=== PATIENT | female | born 1935 | race Caucasian/White ===

== ENCOUNTER 2017-07-10 07:52 | Inpatient (IN) | payer MEDICARE, MEDICAID ==
[2017-07-10] VITALS (8 sets, daily range): BP systolic 148–193; BP diastolic 69–90; PULSE 78–91; RESP 16–18; TEMP 98.2–98.5; O2SAT 95–96
[~2017-07-10] VITALS: Ht 168.9 cm; Wt 87.0 kg
[~2017-07-10 07:52] MED LIST: AMOX500C PO; ASPI1TAB57 PO; CHOL100025 CHEW; IBUP200C PO; LISI40TA PO; MELA1TAB18 PO; QUET1TAB7 PO; SERT-129 PO; VITA250T3 PO
--- NOTE | 2017-07-10 08:12 | PD ---
HPI Chief Complaint: Pain: Acute or Chronic Time Seen by Provider: 08:12 Travel History International Travel<30 days: No Contact w/Intl Traveler<30days: No Traveled to known affect area: No History of Present Illness HPI 81-year-old female with history of dementia was brought to the emergency room by her son and with history of a lot of psychiatric and behavioral issues going on over past 2-3 weeks. The son is the one was giving history. He says that his mother usually has been progressing in the dementia and he has been trying to arrange various medical and psych services for his mother because of her mental health status. The son says that for past couple weeks she has become very briggs and often goes into noncommunicative mode. Also for past few days she has been pooping and peeing everywhere in the house and the son and has to clean it. They are confused if this has anything to do with her behavioral issues or patient is incontinent. Patient was admitted at [facility] last week where as per the son extensive blood test, urine test and CAT scan of the head was done. All the test results came back to be within normal limit. She was discharged home at this point and asked to get outpatient services. Son says he has an appointment with a psychiatrist next week and this is a new psychiatrist. But in the meanwhile because of all the other issues going on he wanted to have a second opinion. She has also been complaining of right hip pain and lower back pain and he wanted that to be evaluated. Vital signs are stable. Patient has been quite cooperative here and does not appear to be in any significant distress. [facility] Past Medical History Narrative Medical List of her past medical, surgical, social and family history reviewed from the nursing note. High Cholesterol: Yes Diminished Hearing: No Hypertension: Yes Menopausal: Yes Tubal Ligation: Yes Past Surgical History Appendectomy: Yes Prostatectomy: Yes (RIGHT HIP REP) Other Surgery: Yes (RIGHT KNEE,TORN MENISCUS) Social History Alcohol Use: Yes (RARE) Tobacco Use: No Substance Use: No Allergies-Medications (Allergen,Severity, Reaction): Coded Allergies: No Known Allergies (Unverified Allergy, Unknown, 07/10/17) Comments No known drug allergies. Reported Meds & Prescriptions Reported Meds & Active Scripts Active Sertraline (Sertraline HCl) 100 Mg Tab 100 Mg PO BID Lorazepam 0.5 Mg Tab 0.5 Mg PO DAILY PRN Quetiapine (Quetiapine Fumarate) 25 Mg Tab 25 Mg PO BID Reported Melatonin 10 Mg Tab 10 Mg PO HS PRN Aspirin 81 (Aspirin) 81 Mg Tabdr 81 Mg PO DAILY Vitamin D3 (Cholecalciferol) 1,000 Unit Chew 5,000 Units CHEW DAILY Vitamin C (Ascorbic Acid) 250 Mg Tab 500 Mg PO DAILY Ibuprofen 200 Mg Cap 200 Mg PO Q4H PRN Lisinopril 40 Mg Tab 40 Mg PO DAILY Narrative Medication List of her home medications reviewed from the nursing note. Review of Systems Except as stated in HPI: all other systems reviewed are Neg Musculoskeletal: Positive: Pain Physical Exam Narrative GENERAL: Awake, alert, elderly, no obvious distress SKIN: Focused skin assessment warm/dry. HEAD: Atraumatic. Normocephalic. EYES: Pupils equal and round. No scleral icterus. No injection or drainage. ENT: No nasal bleeding or discharge. Mucous membranes pink and moist. NECK: Trachea midline. No JVD. CARDIOVASCULAR: Regular rate and rhythm. No murmur appreciated. RESPIRATORY: No accessory muscle use. Clear to auscultation. Breath sounds equal bilaterally. GASTROINTESTINAL: Abdomen soft, non-tender, nondistended. Hepatic and splenic margins not palpable. MUSCULOSKELETAL: No obvious deformities. No clubbing. No cyanosis. No edema. NEUROLOGICAL: Awake and alert, dementia. No obvious cranial nerve deficits. Motor grossly within normal limits. Normal speech. PSYCHIATRIC: Appropriate mood and affect; insight and judgment normal. Data Data Last Documented VS Vital Signs Date Time Temp Pulse Resp B/P (MAP) Pulse Ox O2 Delivery O2 Flow Rate FiO2 07/10/17 10:00 78 18 179/81 (113) 95 Room Air 07/10/17 07:[address] Lumb Spine W/O Contrast (07/10/17 ) Ct Pelvis W/O Iv Contrast (07/10/17 ) Urinalysis - C+S If Indicated (07/10/17 08:34) Urine Culture (07/10/17 09:31) Complete Blood Count With Diff (07/10/17 09:59) Basic Metabolic Panel (Bmp) (07/10/17 09:59) Ceftriaxone Inj (Rocephin Inj) (07/10/17 10:00) Blood Culture (07/10/17 09:59) Mri T Spine W/O Contrast (07/10/17 ) Mri C Spine W/O Contrast (07/10/17 ) Mri L Spine W/O Contrast (07/10/17 ) Admit Order (Ed Use Only) (07/10/17 10:51) Labs Laboratory Tests Test 07/10/17 09:31 07/10/17 10:14 Urine Color YELLOW Urine Turbidity HAZY Urine pH 5.5 Urine Specific [place] 1.016 Urine Protein TRACE mg/dL Urine Glucose (UA) NEG mg/dL Urine Ketones NEG mg/dL Urine Occult Blood MOD Urine Nitrite POS Urine Bilirubin NEG Urine Urobilinogen LESS THAN 2.0 MG/DL Urine Leukocyte Esterase LARGE Urine RBC 8 /hpf Urine WBC 125 /hpf Urine WBC Clumps MANY Urine Squamous Epithelial Cells 2 /hpf Urine Bacteria MANY /hpf Urine Hyaline Casts 10 /lpf Microscopic Urinalysis Comment CULTURE INDICATED White Blood Count 8.7 TH/MM3 Red Blood Count 4.52 MIL/MM3 Hemoglobin 13.4 GM/DL Hematocrit 39.4 % Mean Corpuscular Volume 87.1 FL Mean Corpuscular Hemoglobin 29.6 PG Mean Corpuscular Hemoglobin Concent 34.0 % Red Cell Distribution Width 13.4 % Platelet Count 162 TH/MM3 Mean Platelet Volume 7.5 FL Neutrophils (%) (Auto) 87.7 % Lymphocytes (%) (Auto) 4.8 % Monocytes (%) (Auto) 6.7 % Eosinophils (%) (Auto) 0.4 % Basophils (%) (Auto) 0.4 % Neutrophils # (Auto) 7.7 TH/MM3 Lymphocytes # (Auto) 0.4 TH/MM3 Monocytes # (Auto) 0.6 TH/MM3 Eosinophils # (Auto) 0.0 TH/MM3 Basophils # (Auto) 0.0 TH/MM3 CBC Comment DIFF FINAL Differential Comment Blood Urea Nitrogen 25 MG/DL Creatinine 2.00 MG/DL Random Glucose 120 MG/DL Calcium Level 9.5 MG/DL Sodium Level 138 MEQ/L Potassium Level 4.3 MEQ/L Chloride Level 105 MEQ/L Carbon Dioxide Level 25.4 MEQ/L Anion Gap 8 MEQ/L Estimat Glomerular Filtration Rate 24 ML/MIN MDM Medical Decision Making Medical Screen Exam Complete: Yes Emergency Medical Condition: Yes Medical Record Reviewed: Yes Differential Diagnosis Worsening dementia, dementia with psychosis, UTI, spinal stenosis, hip fracture Narrative Course 10:08 AM UA suggestive of UTI. CT scan of the hip is within normal limit. However CT scan of the lumbar spine shows radiologically significant spinal stenosis. I have ordered Rocephin. I have talked to the OR nurse with Dr. Medina who is on for neurosurgery. He is going to take a look at the CT and call me back. Once I have heard back from him I will call and talk to the son and let him know of the plan. If patient does have significant stenosis as per Dr. Medina I will admit her. He will have to consult on her at which point. 10:[address] Medina did look at the CT as per him the stenosis looks significantly bad. He wanted an MRI of the entire spine which has been ordered. At this point I would go ahead and admit the patient. Awaiting for the hospitalist to call back. I discussed this with her son at length as well. Procedures EKG Prior to Arrival: No Diagnosis Primary Impression: Spinal stenosis at L4-L5 level Additional Impressions: Dementia Qualified Codes: F03.91 - Unspecified dementia with behavioral disturbance UTI (urinary tract infection) Qualified Codes: N39.0 - Urinary tract infection, site not specified Admitting Information Admitting Physician Requests: Admit Scripts Sulfamethoxazole/Trimethoprim (Sulfamethoxazole-Tmp Ss Tablet) 400 Mg-80 Mg Tablet 1 TAB PO Q12H for 12 Days, #24 TAB Prov: Paola Bloom MD R2 07/13/17 Sertraline (Sertraline) 100 Mg Tab 100 MG PO BID, #135 TAB 0 Refills Prov: Ruchi Gold MD R1 07/10/17 Lorazepam (Lorazepam) 0.5 Mg Tab 0.5 MG PO DAILY Y for ANXIETY, #30 TAB 0 Refills Prov: Ruchi Gold MD R1 07/10/17 Edward Addison MD Jul 10, 2017 08:12
--- NOTE | 2017-07-10 09:39 | RADRPT ---
EXAM DATE/TIME: 07/10/2017 09:08 [facility] COMPARISON: No previous studies available for comparison. INDICATIONS : Right sided pelvic pain. ORAL CONTRAST: No oral contrast ingested. RADIATION DOSE: 24.86 CTDIvol (mGy) MEDICAL HISTORY : Hypertension. SURGICAL HISTORY : Appendectomy. right hip surgery ENCOUNTER: Initial ACUITY: 1 day PAIN SCALE: 7/10 LOCATION: Right pelvis TECHNIQUE: Volumetric scanning of the pelvis was performed. Using automated exposure control and adjustment of the mA and/or kV according to patient size, radiation dose was kept as low as reasonably achievable t o obtain optimal diagnostic quality images. DICOM format image data is available electronically for review and comparison. FINDINGS: BOWEL/MESENTERY: The visualized small and large bowel demonstrate no acute abnormality. There is no free fluid. BLADDER: There is distention of the urinary bladder. There is no wall thickening or mass. RETROPERITONEUM: There is no aneurysm or lymphadenopathy. REPRODUCTIVE: Within normal limits. INGUINAL: There is no lymphadenopathy or hernia. MUSCULOSKELETAL: Degenerative changes lumbar spine. Right hip prosthesis without hardware loosening or fracture. Heter otopic bone adjacent to the right hip. Mild to moderate degenerative changes of the left hip. No frac ture seen. Mild degenerative changes both SI joints.. CONCLUSION: 1. Right hip prosthesis. No fracture or hardware loosening. 2. Distended urinary bladder. 3. Degenerative changes of the lumbar spine and left hip. Christian Richardson MD on July 10, 2017 at 9:34 Board Certified Radiologist. This report was verified electronically.
[2017-07-10 09:53] LABS: BACTERIA, URINE MANY /hpf; BILIRUBIN, URINE NEG (NEG); BLOOD, URINE MOD (NEG); GLUCOSE,URINE NEG (NEG); HYALINE CAST, URINE 10 /lpf (RARE); KETONE, URINE NEG (NEG); NITRITE,URINE POS (NEG); PH, URINE 5.5 (5.0-8.5); SQUAMOUS EPITHELIAL CELL URINE 2 /hpf (0-5); URINE COLOR YELLOW (YELLW/STRAW); URINE LEUKOCYTE ESTERASE LARGE (NEG); WHITE BLOOD CELL CLUMPS MANY
--- NOTE | 2017-07-10 09:53 | RADRPT ---
EXAM DATE/TIME: 07/10/2017 09:08 [facility] COMPARISON: No previous studies available for comparison. INDICATIONS : Right hip pain RADIATION DOSE: 35.86 CTDIvol (mGy) MEDICAL HISTORY : Dementia. Hypertension. SURGICAL HISTORY : Appendectomy. ENCOUNTER: Initial ACUITY: 1 day PAIN SCALE: 7/10 LOCATION: Right hip TECHNIQUE: Volumetric scanning of the lumbar spine was performed. Multiplanar reconstructions in the sagittal, coronal and oblique axial planes were performed. Using automated exposure control and adjustment of the mA and/or kV according to patient size, radiation dose was kept as low as reasonably achievable t o obtain optimal diagnostic quality images. DICOM format image data is available electronically for review and comparison. FINDINGS: VERTEBRAE: There are extensive degenerative changes throughout the lumbar spine. There is minimal loss of verte bral body height at T12, age indeterminate. ALIGNMENT: No evidence of subluxation. T12-L1: Mild interspace ridging without spinal stenosis or neural foramina encroachment. L1-L2: Moderate degenerative changes mild spinal stenosis and mild bilateral neural foramina encroachment. L2-L3: Generalized disc bulging present with venous hypertrophy and moderate spinal stenosis. There is mild bilateral neural foramina encroachment. L3-L4: Severe spinal stenosis ligament hypertrophy this bulging and facet overgrowth overgrowth. L4-L5: Moderate to severe spinal stenosis ligament hypertrophy, disc bulging and degenerative changes in the facets. L5-S1: Mild bilateral neural foramina encroachment. Moderate degenerative changes in the facets. Moderate degenerative changes in both SI joints. CONCLUSION: Radiographically significant spinal stenosis at L3-4 and L4-5. Extensive degenerative changes in the facets. Minimal anterior wedging of T12 without significant conus impingement. Shar Mark MD FACR on July 10, 2017 at 9:48 Board Certified Radiologist. This report was verified electronically.
[2017-07-10] MEDS ORDERED: cefTRIAXone INJ 1,000 MG in SODIUM CHLORIDE 0.9% INJ 100 ML IV ONE (10:00)
[2017-07-10 10:30] LABS: AUTOMATED NEUTROPHIL # 7.7 TH/MM3 (1.8-7.7); BASOPHIL % 0.4 % (0.0-2.0); EOSINOPHIL % 0.4 % (0.0-4.0); HEMATOCRIT 39.4 % (35.0-46.0); HEMOGLOBIN 13.4 GM/DL (11.6-15.3); LYMPH % 4.8 % (9.0-44.0); LYMPHOCYTE # 0.4 TH/MM3 (1.0-4.8); MEAN CELL VOLUME 87.1 FL (80.0-100.0); MEAN CORPUSCULAR HEMOGLOBIN 29.6 PG (27.0-34.0); MEAN PLATELET VOLUME 7.5 FL (7.0-11.0); MONO % 6.7 % (0.0-8.0); MONOCYTE # 0.6 TH/MM3 (0-0.9); NEUT % 87.7 % (16.0-70.0); PLATELET COUNT 162 TH/MM3 (150-450); RED BLOOD COUNT 4.52 MIL/MM3 (4.00-5.30); RED CELL DISTRIBUTION WIDTH 13.4 % (11.6-17.2); WHITE BLOOD COUNT 8.7 TH/MM3 (4.0-11.0)
[2017-07-10 10:45] LABS: BICARBONATE 25.4 MEQ/L (21.0-32.0); CALCIUM 9.5 MG/DL (8.5-10.1)
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
[2017-07-10] MEDS ORDERED: LORA0.5T PO (11:04)
[2017-07-10] MEDS ORDERED: MIDAZOLAM HCL 5 MG/ML VIAL (1 ML) ONE (11:29)
[2017-07-10] MEDS ORDERED: LACTULOSE SYRUP 20 GM/30 ML CUP PO PRN (11:45)
[2017-07-10] MEDS ORDERED: NALOXONE HCL 0.4 MG/ML AMP IV PUSH PRN (11:45)
[2017-07-10] MEDS ORDERED: MAGNESIUM HYDROXIDE SUSP 30 ML CUP PO PRN (11:45)
[2017-07-10] MEDS ORDERED: BISACODYL 10 MG SUPP RECTAL PRN (11:45)
[2017-07-10] MEDS ORDERED: SENNOSIDES 8.6 MG TAB PO PRN (11:45)
[2017-07-10] MEDS ORDERED: SODIUM CHLORIDE 0.9% FLUSH 10 ML FLUSH IV FLUSH PRN (11:45)
[2017-07-10] MEDS ORDERED: MIDAZOLAM HCL 2 MG/2 ML VIAL IV PUSH ONE (12:15)
--- NOTE | 2017-07-10 12:18 | RADRPT ---
EXAM DATE/TIME: 07/10/2017 11:02 [facility] COMPARISON: No previous studies available for comparison. INDICATIONS : Myelopathy. MEDICAL HISTORY : Deep venous thrombosis. Dementia. Hypertension. SURGICAL HISTORY : Total knee replacement, right. Cholecystectomy. Bladder sling sx, Rt shoulder sx. ENCOUNTER: Initial ACUITY: 1 week PAIN SCORE: 7/10 LOCATION: Bilateral mid back region TECHNIQUE: Multiplanar multisequence MRI of the thoracic spine was performed. FINDINGS: VERTEBRA: Normal vertebral body height. Homogeneous marrow signal. ALIGNMENT: No anterolisthesis or retrolisthesis. CORD: Normal position and configuration. T1-T2: No disc herniation, canal stenosis, or neural foraminal stenosis. T2-T3: The thecal sac has a normal diameter. No evidence of disc bulge or protrusion. T3-T4: The thecal sac has a normal diameter. No evidence of disc bulge or protrusion. T4-T5: The thecal sac has a normal diameter. No evidence of disc bulge or protrusion. T5-T6: The thecal sac has a normal diameter. No evidence of disc bulge or protrusion. T6-T7: There is a small left paracentral disc protrusion. No canal stenosis or neural foraminal stenosis is present. T7-T8: The thecal sac has a normal diameter. No evidence of disc bulge or protrusion. T8-T9: The thecal sac has a normal diameter. No evidence of disc bulge or protrusion. T9-T10: The thecal sac has a normal diameter. No evidence of disc bulge or protrusion. T10-T11: The thecal sac has a normal diameter. No evidence of disc bulge or protrusion. T11-T12: There is a mild diffuse disc bulge. No canal stenosis or neural foraminal stenosis is identified. T12-L1: There is a diffuse disc bulge. No canal stenosis or neural foraminal stenosis is present. CONCLUSION: Mild degenerative change of the thoracic spine, as above. No acute thoracic spine abnormality is iden tified. Spinal cord demonstrates no abnormality. Tin Chester MD on July 10, 2017 at 12:11 Board Certified Radiologist. This report was verified electronically.
[2017-07-10] MEDS ORDERED: SERT-129 PO (12:59)
--- NOTE | 2017-07-10 13:00 | RADRPT ---
EXAM DATE/TIME: 07/10/2017 11:02 [facility] COMPARISON: No previous studies available for comparison. INDICATIONS : Myelopathy. MEDICAL HISTORY : Hypertension. Deep venous thrombosis. Dementia. TBI SURGICAL HISTORY : Cholecystectomy. Rt hip replacement, rt shoulder,bladder sling ENCOUNTER: Subsequent ACUITY: 1 week PAIN SCORE: 3/10 LOCATION: lower back TECHNIQUE: Multiplanar multisequence MRI of the lumbar spine was performed without contrast. FINDINGS: The most caudal appearing lumbar vertebra is numbered as L5. Sagittal T1-T2 and inversion recovery images show multiple disc disease with loss of disc height and disc desiccation at every lumbar level, least severe at the lumbosacral junction. Marginal spurring p osteriorly is most prominent at L3-4. There are broad-based diffuse disc from L2-3 through L4-5. In c ombination with posterior element hypertrophy, there appears to be severe spinal stenosis at both the L3-4 and L4-5 levels moderate stenosis at L2-3. Also noted is a markedly distended urinary bladder a nd some findings of hydroureter with pelvocaliectasis of both renal collecting systems. Far lateral i mages show narrowing of the left neural foramen at the lumbosacral junction which may compromise the left L5 nerve root. Axial sequences are extremely limited due to motion artifact T12-L1: Limited anatomic detail. Broad based disc bulge encroaches on the anterior epidural space without cor d compromise. L1-L2: Limited anatomic detail. Spinal canal appears to be adequate despite some mild facet hypertrophy. L2-L3: Diffuse disc bulge and posterior element hypertrophy with moderate central spinal stenosis but no obv ious central nerve root compromise. Details of the neural foramina are limited. L3-L4: Diffuse disc bulge and posterior element hypertrophy resulting in severe central spinal stenosis whic h almost certainly compromises central nerve roots. Neural foramina are difficult to visualize L4-L5: Diffuse disc bulge and posterior element hypertrophy resulting in severe central spinal stenosis and central nerve root compromise. Neural foramina are difficult to visualize L5-S1: Facet hypertrophy but the spinal canal appears to be adequate. Neural foramina are difficult to visua lize due to motion artifact but again, there did appear to be some narrowing of the left neural cory diane on the corresponding sagittal images with possible compromise of the left L5 nerve root. CONCLUSION: 1. Axial images are extremely limited due to motion artifact. 2. Mild central spinal stenosis at T12-L1, moderate central spinal stenosis at L2-3 and severe spinal stenosis at L3-4 and L4-5. There is almost certain central nerve root compromise at both the L3-4 an d L4-5 levels. 3. On the sagittal T1 sequences, there appears to be obliteration of the epidural fat around the left L5 nerve root which could compromise the left L5 dermatome. 4. MR findings concerning for bladder outlet obstruction with marked distention of the urinary bladde r, bilateral hydroureter and bilateral hydronephrosis. James Cain MD on July 10, 2017 at 12:49 Board Certified Radiologist. This report was verified electronically.
--- NOTE | 2017-07-10 13:01 | RADRPT ---
EXAM DATE/TIME: 07/10/2017 11:02 [facility] COMPARISON: No previous studies available for comparison. INDICATIONS : Myelopathy. MEDICAL HISTORY : Deep venous thrombosis. Hypertension. Dementia. TBI SURGICAL HISTORY : Cholecystectomy. Rt hip replacement, bladder sling, rt shoulder ENCOUNTER: Subsequent ACUITY: 1 week PAIN SCORE: 0/10 LOCATION: neck TECHNIQUE: Multiplanar, multisequence MRI examination of the cervical spine was performed. Moderate motion sekou fact is present. FINDINGS: VERTEBRAE: Exam is limited by moderate motion artifact. Normal vertebral body height. Homogeneous marrow signa l. ALIGNMENT: No evidence of subluxation. CORD: Normal configuration and signal. POST FOSSA: The cerebellar tonsils are normal in position. C2-C3: Motion, no significant cord compression. C3-C4: Motion, no significant cord compression. C4-C5: Moderate motion artifact. No significant cord compression C5-C6: Moderate disc and uncinate ridging suggesting significant cord compression. Motion makes it extremel y difficult to exclude such. C6-C7: Disc and uncinate ridging suggesting significant cord compression. C7-T1: Mild uncinate ridging. CONCLUSION: Significant motion. There appear to be significant spinal stenosis at the C5-C6 and C6-C7 levels. Shar Mark MD FACR on July 10, 2017 at 12:32 Board Certified Radiologist. This report was verified electronically.
[2017-07-10] MEDS ORDERED: MELATONIN 5 MG TAB PO PRN (13:45)
[2017-07-10] MEDS: LISINOPRIL 20 MG TAB PO SCH (14:08)
[2017-07-10 14:30] LABS: TROPONIN I LESS THAN 0.02 NG/ML (0.02-0.05)
[2017-07-10] MEDS ORDERED: cloNIDine HCL 0.1 MG TAB PO PRN (17:30)
[2017-07-10] MEDS: ACETAMINOPHEN 1000 MG/100 ML 100 ML IV SCH (18:03)
[2017-07-10] MEDS ORDERED: ONDANSETRON HCL 4 MG/2 ML VIAL IVP PRN (18:15)
[2017-07-10] MEDS: QUEtiapine FUMARATE 25 MG TAB PO SCH (21:43)
[2017-07-10] MEDS: DOCUSATE SODIUM 50 MG/SENNA 8.6 MG TAB PO SCH (21:43)
[2017-07-10] MEDS: SODIUM CHLORIDE 0.9% FLUSH 10 ML FLUSH IV FLUSH SCH (21:43)
[2017-07-10] MEDS: SODIUM CHLOR 0.9% 1000 ML INJ 1,000 ML IV SCH (21:44)
--- NOTE | 2017-07-10 23:49 | PD.CONS ---
History of Present Illness Service Neurosurgery Consult Requested By Medicine service Reason for Consult Lumbar stenosis Primary Care Physician Iam Jones MD Diagnoses: History of Present Illness 81-year-old female with history of dementia, brought to the emergency room by her family with increased speech deficit, bladder and bowel incontinence. The patient's son provides most of the history. The patient has a long history of spinal stenosis, diagnosed approximately 7-8 years ago. She has been taking ibuprofen for the pain. Her son states that over the past couple of years, the patient has had gradual decline in her mental status and speech with increasing confusion. He states that a couple of weeks ago he took her mother up to [place], and she did not do well. He brought her back home and she initially seemed to improve somewhat. However she did have a episode this past Monday where her noted that she stop breathing for a brief period of time and afterwards was rather lethargic for approximately 3 hours. She was taken to [facility] emergency room for evaluation . She seemed relatively stable until this past Monday when she stopped talking and appeared to be in increased pain. She was noted to have bowel and bladder incontinence and was brought back to the emergency room at [facility]. Review of Systems Unable to obtain accurate review of systems from the patient. 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 Past Surgical History Bladder surgery Cholecystectomy Right hip arthroplasty Right shoulder surgery Reported Medications Reported Meds & Active Scripts Active Sertraline (Sertraline HCl) 100 Mg Tab 100 Mg PO BID Lorazepam 0.5 Mg Tab 0.5 Mg PO DAILY PRN Quetiapine (Quetiapine Fumarate) 25 Mg Tab 25 Mg PO BID Reported Melatonin 10 Mg Tab 10 Mg PO HS PRN Aspirin 81 (Aspirin) 81 Mg Tabdr 81 Mg PO DAILY Vitamin D3 (Cholecalciferol) 1,000 Unit Chew 5,000 Units CHEW DAILY Vitamin C (Ascorbic Acid) 250 Mg Tab 500 Mg PO DAILY Ibuprofen 200 Mg Cap 200 Mg PO Q4H PRN Lisinopril 40 Mg Tab 40 Mg PO DAILY Family History Negative neurologic disease Social History No alcohol No smoking Lives with her Physical Exam Vital Signs Vital Signs Date Time Temp Pulse Resp B/P (MAP) Pulse Ox O2 Delivery O2 Flow Rate FiO2 07/10/17 17:40 98.4 89 17 193/90 (124) 95 07/10/17 16:11 07/10/17 14:00 84 18 155/76 (102) 96 Room Air 07/10/17 12:10 95 21 07/10/17 12:00 88 16 148/80 (102) 96 Room Air 07/10/17 10:00 78 18 179/81 (113) 95 Room Air 07/10/17 08:14 89 17 162/85 (110) 96 Room Air 07/10/17 07:58 98.5 88 18 182/86 (118) 95 Physical Exam GENERAL: This is a well-nourished, well-developed patient, in no apparent distress. SKIN: No rashes, ecchymoses or lesions. Cool and dry. HEAD: Atraumatic. Normocephalic. No temporal or scalp tenderness. EYES: Pupils equal round and reactive. Extraocular motions intact. No scleral icterus. No injection or drainage. ENT: No facial edema or ecchymosis NECK: No neck tenderness. Normal range of motion CARDIOVASCULAR: Regular rate and rhythm without murmurs, gallops, or rubs. RESPIRATORY: Clear to auscultation. Breath sounds equal bilaterally. No wheezes , rales, or rhonchi. GASTROINTESTINAL: Abdomen soft, non-tender, nondistended. No hepato-splenomegaly , or palpable masses. No guarding. MUSCULOSKELETAL: No cyanosis or edema. No significant lumbar spine tenderness. No complaint of significant pain with bilateral hip or knee range of motion. NEUROLOGICAL: Awake and alert Significant expressive speech deficit. She will say a few words clearly but mostly inappropriate with significant word substitution. She has market difficulty following any simple commands. Will occasionally try to follow based on visual cues. Extraocular movements intact She will count fingers with both eyes. Difficult to perform more accurate visual field testing. Facial motor movements are symmetric. Tongue protrudes slightly midline. She indicates intact sensation to light touch all extremities Motor testing is somewhat difficult as she has problems following commands. She generally seems to move her upper and lower extremities with reasonably good strength. Shell's response is mild positive on the left, absent on the right. No ankle clonus Laboratory Laboratory Tests Test 07/10/17 09:31 07/10/17 10:14 07/10/17 12:30 Urine Color YELLOW Urine Turbidity HAZY Urine pH 5.5 Urine Specific [place] 1.016 Urine Protein TRACE Urine Glucose (UA) NEG Urine Ketones NEG Urine Occult Blood MOD Urine Nitrite POS Urine Bilirubin NEG Urine Urobilinogen LESS THAN 2.0 Urine Leukocyte Esterase LARGE Urine RBC 8 Urine WBC 125 Urine WBC Clumps MANY Urine Squamous Epithelial Cells 2 Urine Bacteria MANY Urine Hyaline Casts 10 Microscopic Urinalysis Comment CULTURE INDICATED White Blood Count 8.7 Red Blood Count 4.52 Hemoglobin 13.4 Hematocrit 39.4 Mean Corpuscular Volume 87.1 Mean Corpuscular Hemoglobin 29.6 Mean Corpuscular Hemoglobin Concent 34.0 Red Cell Distribution Width 13.4 Platelet Count 162 Mean Platelet Volume 7.5 Neutrophils (%) (Auto) 87.7 Lymphocytes (%) (Auto) 4.8 Monocytes (%) (Auto) 6.7 Eosinophils (%) (Auto) 0.4 Basophils (%) (Auto) 0.4 Neutrophils # (Auto) 7.7 Lymphocytes # (Auto) 0.4 Monocytes # (Auto) 0.6 Eosinophils # (Auto) 0.0 Basophils # (Auto) 0.0 CBC Comment DIFF FINAL Differential Comment Blood Urea Nitrogen 25 Creatinine 2.00 Random Glucose 120 Calcium Level 9.5 Sodium Level 138 Potassium Level 4.3 Chloride Level 105 Carbon Dioxide Level 25.4 Anion Gap 8 Estimat Glomerular Filtration Rate 24 Ammonia LESS THAN 10 Total Creatine Kinase 46 Troponin I LESS THAN 0.02 Thyroid Stimulating Hormone 3rd Gen 1.180 Date/Time Source Procedure Growth Status 07/10/17 10:14 Blood Peripheral Aerobic Blood Culture Pending Received 07/10/17 10:14 Blood Peripheral Anaerobic Blood Culture Pending Received 07/10/17 09:31 Urine Clean Catch Urine Culture Pending Received Result Diagram: 07/10/17 1014 07/10/17 1014 Imaging The patient cervical thoracic and lumbar spine MRI images have been reviewed. There is moderate mid to lower cervical spine stenosis without definite abnormal signal intensity within the cord, however significant artifact is present. No significant thoracic spine stenosis or abnormal cord signal intensity. There is moderately severe stenosis at the L3-4 and L4-5 levels with AP thecal sac dimension measuring approximately 5 mm with moderately severe lateral recess stenosis. Lower Extremity Ultrasound 07/11/17 0000 Signed Impressions: Service Date/Time: Tuesday, July 11, 2017 09:56 - CONCLUSION: No evidence of DVT. Rivas Brizuela MD Thoracic Spine MRI 07/10/17 0000 Signed Impressions: Service Date/Time: Monday, July 10, 2017 11:02 - CONCLUSION: Mild degenerative change of the thoracic spine, as above. No acute thoracic spine abnormality is identified. Spinal cord demonstrates no abnormality. Tin Chester MD Pelvis CT 07/10/17 0000 Signed Impressions: Service Date/Time: Monday, July 10, 2017 09:08 - CONCLUSION: 1. Right hip prosthesis. No fracture or hardware loosening. 2. Distended urinary bladder. 3. Degenerative changes of the lumbar spine and left hip. Christian Richardson MD Lumbar Spine MRI 07/10/17 0000 Signed Impressions: Service Date/Time: Monday, July 10, 2017 11:02 - CONCLUSION: 1. Axial images are extremely limited due to motion artifact. 2. Mild central spinal stenosis at T12-L1, moderate central spinal stenosis at L2-3 and severe spinal stenosis at L3-4 and L4-5. There is almost certain central nerve root compromise at both the L3-4 and L4-5 levels. 3. On the sagittal T1 sequences, there appears to be obliteration of the epidural fat around the left L5 nerve root which could compromise the left L5 dermatome. 4. MR findings concerning for bladder outlet obstruction with marked distention of the urinary bladder, bilateral hydroureter and bilateral hydronephrosis. James Cain MD Lumbar Spine CT 07/10/17 0000 Signed Impressions: Service Date/Time: Monday, July 10, 2017 09:08 - CONCLUSION: Radiographically significant spinal stenosis at L3-4 and L4-5. Extensive degenerative changes in the facets. Minimal anterior wedging of T12 without significant conus impingement. Shar Mark MD FACR Cervical Spine MRI 07/10/17 0000 Signed Impressions: Service Date/Time: Monday, July 10, 2017 11:02 - CONCLUSION: Significant motion. There appear to be significant spinal stenosis at the C5-C6 and C6-C7 levels. Shar Mark MD FACR Assessment and Plan Assessment and Plan Moderately severe lumbar stenosis. No definite cauda equina syndrome Cervical myelopathy chronic versus subacute Cervical stenosis on MRI but significant artifact UTI. Recent onset increased mental status changes and speech difficulty. Likely related to urinary tract infection. Severe bladder distention noted on initial MRI lumbar spine. REC: We will need to discuss treatment options further with the family. Depending on family desires for treatment, she may require a repeat MRI of the cervical spine under sedation to better determine the presence of significant cord compression. There is no definite evidence of cauda equina syndrome at this point. As her mental status improves, a more accurate examination may be possible. Grabiel Medina MD Jul 10, 2017 23:49
[2017-07-11] VITALS (7 sets, daily range): BP systolic 130–170; BP diastolic 64–70; PULSE 77–85; RESP 16–19; TEMP 98–98.7; O2SAT 94–95
[2017-07-11] MEDS: ACETAMINOPHEN 1000 MG/100 ML 100 ML IV SCH ×3 (00:10→11:39)
[2017-07-11] MEDS: SODIUM CHLOR 0.9% 1000 ML INJ 1,000 ML IV SCH ×2 (02:18→18:58)
[2017-07-11] MEDS: SULFAMETHOXAZOLE-TRIMETHOPRIM 400-80 MG TAB PO SCH ×2 (05:57→17:42)
[2017-07-11 07:00] LABS: AUTOMATED NEUTROPHIL # 8.7 TH/MM3 (1.8-7.7); BASOPHIL % 0.2 % (0.0-2.0); EOSINOPHIL # 0.1 TH/MM3 (0-0.4); EOSINOPHIL % 0.9 % (0.0-4.0); HEMATOCRIT 33.9 % (35.0-46.0); HEMOGLOBIN 11.7 GM/DL (11.6-15.3); LYMPH % 6.5 % (9.0-44.0); LYMPHOCYTE # 0.6 TH/MM3 (1.0-4.8); MEAN CELL VOLUME 86.8 FL (80.0-100.0); MEAN CORPUSCULAR HGB CONC 34.6 % (32.0-36.0); MONO % 5.2 % (0.0-8.0); MONOCYTE # 0.5 TH/MM3 (0-0.9); NEUT % 87.2 % (16.0-70.0); PLATELET COUNT 139 TH/MM3 (150-450); RED CELL DISTRIBUTION WIDTH 13.5 % (11.6-17.2); WHITE BLOOD COUNT 9.9 TH/MM3 (4.0-11.0)
[2017-07-11 07:25] LABS: ALT (GPT) 16 U/L (10-53); AST (GOT) 17 U/L (15-37); BICARBONATE 24.7 MEQ/L (21.0-32.0); BLOOD UREA NITROGEN 28 MG/DL (7-18); CALCIUM 8.9 MG/DL (8.5-10.1); CHLORIDE 111 MEQ/L (98-107); CREATININE 1.85 MG/DL (0.50-1.00); GLOMERULAR FILTRATION RATE 26 ML/MIN (>89); GLUCOSE,RANDOM 103 MG/DL (74-106); SODIUM (NA) 144 MEQ/L (136-145)
[2017-07-11 07:28] LABS: ALKALINE PHOSPHATASE 65 U/L (45-117); TOTAL BILIRUBIN ADULT 0.6 MG/DL (0.2-1.0); TOTAL PROTEIN 6.2 GM/DL (6.4-8.2)
--- NOTE | 2017-07-11 10:16 | RADRPT ---
EXAM DATE/TIME: 07/11/2017 09:41 [facility] COMPARISON: No previous studies available for comparison. INDICATIONS : Increased bun and creatinine. MEDICAL HISTORY : UTI. Dementia. DVT. HTN. SURGICAL HISTORY : Cholecystectomy. Right hip replacement. Bladder sling. ENCOUNTER: Initial ACUITY: 1 day PAIN SCORE: Nonresponsive. LOCATION: Bilateral flank. MEASUREMENTS: RIGHT KIDNEY: 11.5 x 3.8 x 3.5 cm LEFT KIDNEY: 10.5 x 6.0 x 5.9 cm FINDINGS: RIGHT KIDNEY: Renal cortex is normal in thickness and echotexture. No hydronephrosis, stone, or mass. LEFT KIDNEY: Renal cortex is normal in thickness and echotexture. No hydronephrosis, stone, or mass. BLADDER: Within normal limits given the degree of distension. CONCLUSION: No acute disease. Rivas Brizuela MD on July 11, 2017 at 10:12 Board Certified Radiologist. This report was verified electronically.
[2017-07-11] MEDS: ASPIRIN EC 81 MG TABEC PO SCH (10:43)
[2017-07-11] MEDS: DOCUSATE SODIUM 50 MG/SENNA 8.6 MG TAB PO SCH ×2 (10:43→21:09)
[2017-07-11] MEDS: ASCORBIC ACID 500 MG TAB PO SCH (10:43)
[2017-07-11] MEDS: CHOLECALCIFEROL (VIT D3) 1000 UNIT TAB PO SCH (10:44)
[2017-07-11] MEDS: QUEtiapine FUMARATE 25 MG TAB PO SCH ×2 (10:44→21:09)
[2017-07-11] MEDS: LISINOPRIL 20 MG TAB PO SCH (10:44)
[2017-07-11] MEDS ORDERED: LORazepam 0.5 MG TAB PO PRN (10:45)
[2017-07-11] MEDS: SODIUM CHLORIDE 0.9% FLUSH 10 ML FLUSH IV FLUSH SCH ×2 (10:45→21:00)
--- NOTE | 2017-07-11 11:38 | PD.PSY.CON ---
Provisional Diagnosis Admission Date Jul 10, 2017 at 10:54 [place] I. Major neurocognitive disorder [place] II. Deferred [place] III. Urinary incontinence, UTI, history of TBI, hypertension, History of Present Illness Service Psychiatry Consult Requested By Medicine Reason for Consult Agitation Primary Care Physician Iam Jones MD HPI The patient is a 81 year-old, woman, domiciled with her in [place], she has 8 kids, with psychiatric history of severe dementia, no psychiatric hospitalizations, no previous suicidal attempts, she has no history of agitation or aggressive behavior, she is in Seroquel 25 mg twice daily, Zoloft 200 mg, medical history of spinal stenosis, hypertension, who presented in the ER with combative behavior who presents to the ED, accompanied by her and son, for evaluation of pain and incontinence. Patient's son provides the history. Patient was admitted at [facility] last week; unsure of whether admission followed episode described above. Extensive blood and urine tests/studies as well as a CAT scan of the head were performed. All the test results came back within normal limit. The patient was discharged home and asked to follow-up with outpatient services. The son has made an appointment with a neuropsychiatrist for next week. The patient was consulted to psychiatry as per son request. Chart was reviewed. Her some names is Bishop Miller, he is present during my psychiatric evaluation today. He presents himself as a neuropsychologist/neuroscientist. On psychiatric evaluation the patient is calm, non-cooperative due to the level of dementia. She is a very poor historian. She reports feeling okay, she said that she is happy. She does not seem to be in distress or anxious. She denies suicidal and homicidal ideation, she denies visual and auditory hallucinations. Patient is completely disoriented in time person and place. She does not even recognize her son. There is no agitation, behavioral dysregulation, or aggressiveness present. Her son reports that he is very interested in this finding if the patient is demented due to history of TBI or this is a primary dementia. He says that in his opinion she has Lewy body dementia, but the diagnosis has not been supported by neuropsychological testing. He reports that the patient has been periodically agitated, disorganized and psychotic in the hospital most probably related with her underlying medical conditions. At baseline the patient is usually very calm, no problematic, no usually agitated, compliant with her medications. The patient has been in Seroquel 25 mg twice daily, Zoloft 200 mg and also Ativan prescribed by PCP. Review of Systems Constitutional: DENIES: Diaphoretic episodes, Fatigue, Fever, Weight gain, Weight loss, Chills, Dizziness, Change in appetite, Night Sweats Endocrine: DENIES: Abnorml menstrual pattern, Heat/cold intolerance, Polydipsia , Polyuria, Polyphagia Eyes: DENIES: Blurred vision, Diplopia, Eye inflammation, Eye pain, Vision loss , Photosensitivity, Double Vision Ears, nose, mouth, throat: DENIES: Tinnitus, Hearing loss, Vertigo, Nasal discharge, Oral lesions, Throat pain, Hoarseness, Ear Pain, Running Nose, Epistaxis, Sinus Pain, Toothache, Odynophagia Respiratory: DENIES: Apneas, Cough, Snoring, Wheezing, Hemoptysis, Sputum production, Shortness of breath Cardiovascular: DENIES: Chest pain, Palpitations, Syncope, Dyspnea on Exertion , PND, Lower Extremity Edema, Orthopnea, Claudication Gastrointestinal: DENIES: Abdominal pain, Black stools, Bloody stools, Constipation, Diarrhea, Nausea, Vomiting, Difficulty Swallowing, Anorexia Genitourinary: DENIES: Abnormal vaginal bleeding, Dysmenorrhea, Dyspareunia, Sexual dysfunction, Urinary frequency, Urinary incontinence, Urgency, Hematuria , Dysuria, Nocturia, Vaginal discharge Musculoskeletal: DENIES: Joint pain, Muscle aches, Stiffness, Joint Swelling, Back pain, Neck pain Integumentary: DENIES: Abnormal pigmentation, Pruritus, Rash, Nail changes, Breast masses, Breast skin changes, Nipple discharge Hematologic/lymphatic: DENIES: Bruising, Lymphadenopathy Immunologic/allergic: DENIES: Eczema, Urticaria Neurologic: DENIES: Abnormal gait, Headache, Localized weakness, Paresthesias, Seizures, Speech Problems, Tremor, Poor Balance Psychiatric: DENIES: Anxiety, Confusion, Mood changes, Depression, Hallucinations, Agitation, Homicidal Ideation, Delusions Past Family Social History Coded Allergies: No Known Allergies (Unverified Allergy, Unknown, 07/10/17) Active Scripts Sertraline (Sertraline) 100 Mg Tab, 100 MG PO BID, #135 TAB 0 Refills Prov:Ruchi Gold MD R1 07/10/17 Lorazepam (Lorazepam) 0.5 Mg Tab, 0.5 MG PO DAILY Y for ANXIETY, #30 TAB 0 Refills Prov:Ruchi Gold MD R1 07/10/17 Quetiapine (Quetiapine) 25 Mg Tab, 25 MG PO BID, #135 TAB 5 Refills Prov:Iam Jones MD 03/30/17 Reported Medications Melatonin (Melatonin) 10 Mg Tab, 10 MG PO HS Y for SLEEP, TAB 0 Refills 10/21/[address] (Aspirin 81) 81 Mg Tabdr, 81 MG PO DAILY, TAB 0 Refills 10/21/16 Cholecalciferol (Vitamin D3) 1,000 Unit Chew, 5000 UNITS CHEW DAILY for Nutritional Supplement, #1 BOTTLE 0 Refills 10/21/16 Ascorbic Acid (Vitamin C) 250 Mg Tab, 500 MG PO DAILY for Nutritional Supplement , TAB 0 Refills 10/21/16 Ibuprofen (Ibuprofen) 200 Mg Cap, 200 MG PO Q4H Y for PAIN SCALE 1 TO 10, CAP 0 Refills 10/21/16 Lisinopril (Lisinopril) 40 Mg Tab, 40 MG PO DAILY for Blood Pressure Management , #30 TAB 0 Refills 10/21/16 Discontinued Scripts Amoxicillin (Amoxicillin) 500 Mg Cap, 500 MG PO TID for Infection, #21 CAP 0 Refills Prov:Laron Rasmussen Jr., MD 04/10/17 Current Medications Medications (Trade) Dose Ordered Sig/Anita Route Start Time Stop Time Status Last Admin (NS Flush) 2 ml UNSCH PRN IV FLUSH 07/10/17 11:45 07/10/17 18:02 (NS Flush) 2 ml BID IV FLUSH 07/10/17 21:00 07/11/17 10:45 (Narcan Inj) 0.4 mg UNSCH PRN IV PUSH 07/10/17 11:45 (Nichelle-Colace) 1 tab BID PO 07/10/17 21:00 07/11/17 10:43 (Milk Of Magnesia Liq) 30 ml Q12H PRN PO 07/10/17 11:45 (Senokot) 17.2 mg Q12H PRN PO 07/10/17 11:45 (Dulcolax Supp) 10 mg DAILY PRN RECTAL 07/10/17 11:45 (Lactulose Liq) 30 ml DAILY PRN PO 07/10/17 11:45 (Ecotrin Ec) 81 mg DAILY PO 07/11/17 09:00 07/11/17 10:43 (Vitamin D3) 5,000 units DAILY PO 07/11/17 09:00 07/11/17 10:44 (SEROquel) 25 mg BID PO 07/10/17 21:00 07/11/17 10:44 (Vitamin C) 500 mg DAILY PO 07/11/17 09:00 07/11/17 10:43 (Prinivil) 40 mg DAILY PO 07/10/17 13:45 07/11/17 10:44 (Melatonin) 10 mg HS PRN PO 07/10/17 13:45 Acetaminophen 100 ml @ 400 mls/hr Q6H IV 07/10/17 18:00 07/11/17 12:14 07/11/17 05:57 (Bactrim 400-80 Mg) 1 tab Q12H PO 07/11/17 06:00 07/11/17 05:57 (Catapres) 0.1 mg Q6H PRN PO 07/10/17 17:30 Sodium Chloride 1,000 ml @ 120 mls/hr Q8H20M IV 07/10/17 17:58 07/10/17 21:44 (Zofran Inj) 4 mg Q6H PRN IVP 07/10/17 18:15 (Ativan) 0.5 mg DAILY PRN PO 07/11/17 10:45 Family Psych History No family history Social History Patient was born and raised in [place], she lives in [place] with her , she has 8 kids, her highest level of education is a college degree Patient's Strengths (min. 2) Very good family support Physical Exam No tremors, no EPS, no stiffness, Vital Signs Vital Signs Date Time Temp Pulse Resp B/P (MAP) Pulse Ox O2 Delivery O2 Flow Rate FiO2 07/11/17 08:14 98.3 79 17 148/70 (96) 94 07/10/17 14:00 Room Air 07/10/17 12:10 21 I/O 07/11/17 07/11/17 07/12/17 08:00 16:00 00:00 Intake Total 0 ml Output Total 1425 ml Balance -1425 ml Lab Results Test 07/10/17 12:30 07/11/17 06:08 Ammonia LESS THAN 10 MCMOL/L Total Creatine Kinase 46 U/L Troponin I LESS THAN 0.02 NG/ML Thyroid Stimulating Hormone 3rd Gen 1.180 uIU/ML White Blood Count 9.9 TH/MM3 Red Blood Count 3.90 MIL/MM3 Hemoglobin 11.7 GM/DL Hematocrit 33.9 % Mean Corpuscular Volume 86.8 FL Mean Corpuscular Hemoglobin 30.0 PG Mean Corpuscular Hemoglobin Concent 34.6 % Red Cell Distribution Width 13.5 % Platelet Count 139 TH/MM3 Mean Platelet Volume 8.0 FL Neutrophils (%) (Auto) 87.2 % Lymphocytes (%) (Auto) 6.5 % Monocytes (%) (Auto) 5.2 % Eosinophils (%) (Auto) 0.9 % Basophils (%) (Auto) 0.2 % Neutrophils # (Auto) 8.7 TH/MM3 Lymphocytes # (Auto) 0.6 TH/MM3 Monocytes # (Auto) 0.5 TH/MM3 Eosinophils # (Auto) 0.1 TH/MM3 Basophils # (Auto) 0.0 TH/MM3 CBC Comment DIFF FINAL Differential Comment Blood Urea Nitrogen 28 MG/DL Creatinine 1.85 MG/DL Random Glucose 103 MG/DL Total Protein 6.2 GM/DL Albumin 3.0 GM/DL Calcium Level 8.9 MG/DL Alkaline Phosphatase 65 U/L Aspartate Amino Transf (AST/SGOT) 17 U/L Alanine Aminotransferase (ALT/SGPT) 16 U/L Total Bilirubin 0.6 MG/DL Sodium Level 144 MEQ/L Potassium Level 3.9 MEQ/L Chloride Level 111 MEQ/L Carbon Dioxide Level 24.7 MEQ/L Anion Gap 8 MEQ/L Estimat Glomerular Filtration Rate 26 ML/MIN Date/Time Source Procedure Growth Status 07/10/17 10:14 Blood Peripheral Aerobic Blood Culture - Preliminary NO GROWTH IN 1 DAY Resulted 07/10/17 10:14 Blood Peripheral Anaerobic Blood Culture - Preliminary NO GROWTH IN 1 DAY Resulted 07/10/17 09:31 Urine Clean Catch Urine Culture Pending Received Mental Status Examination Appearance: Appropriate Consciousness: Alert Orientation: Person Motor Activity: Normal gait Speech: Unremarkable Language: Adequate Fund of Knowledge: Adequate Attention and Concentration: Adequate Memory: Impaired Mood: Appropriate Affect: Appropriate Thought Process & Associations: Intact Thought Content: Appropriate Hallucination Type: None Delusion Type: None Suicidal Ideation: No Suicidal Plan: No Suicidal Intention: No Homicidal Ideation: No Homicidal Plan: No Homicidal Intention: No Insight: Fair Judgment: Impulsive Assessment & Plan Problem List: (1) Major neurocognitive disorder ICD Codes: F03.90 - Unspecified dementia without behavioral disturbance Assessment & Plan: The patient does not present evidence of depression, anxiety , psychosis or acute delirium at this moment. She denies suicidal and homicidal ideation, she denies visual and auditory hallucinations. The patient does have a severe memory loss and cognitive impairment which is secondary to her neurocognitive disorder. Moment of my evaluation, no agitation, no behavioral dysregulation, no aggressiveness are present. She seems to be at baseline as per son. Her recent combativeness, agitation was most probably related with delirium secondary to UTI. I recognize that the patient has an increased risk for delirium in the hospital due to her age, underlying cognitive disorder, UTI and also due to polypharmacy. Frequent reorientation and sensory stimulation, familiar faces around, appropriate lights in the unit, also periodic ambulation are measures that help with delirium. Continue Seroquel 25 mg twice daily for behavioral dysregulation and agitation. Avoid deliriogenic medications as much as possible, benzodiazepines/ anticholinergics/narcotics Can use Haldol 2 mg IM/IV every 8 hours as needed severe agitation and combativeness, make sure that QTC is not longer than 460, QTC is now 378 Consider to consult neuropsychologist, Dr. Reyna to help with neuropsychological testing for classification of dementia and further care Extensive support, motivation and psychoeducation provided to the patient and son. Patient does not meet criteria for involuntary psychiatric admission at this moment. I will follow up Assessment & Plan Estimated LOS: Wil Perera MD Jul 11, 2017 11:37
[2017-07-11] MEDS ORDERED: HALOPERIDOL LACTATE 5 MG/ML AMP IM PRN (12:00)
[2017-07-11] MEDS: SERTRALINE HCL 100 MG TAB PO SCH ×2 (12:34→21:09)
--- NOTE | 2017-07-11 15:33 | EKG ---
Date Performed: 07/10/2017 Time Performed: 14:03:48 PTAGE: 81 years EKG: Sinus rhythm BORDERLINE LEFT AXIS DEVIATION VOLTAGE CRITERIA FOR LVH NONSPECIFIC T-WAVE ABNORMALITY ABNORMAL ECG Since the PREVIOUS TRACING , no significant change noted PREVIOUS TRACIN02/14/2013 11.14 DOCTOR: Jf Heard Interpretating Date/Time 07/11/2017 15:23:38
--- NOTE | 2017-07-11 15:39 | RADRPT ---
EXAM DATE/TIME: 07/11/2017 09:56 [facility] COMPARISON: No previous studies available for comparison. INDICATIONS : Bilateral leg swelling. MEDICAL HISTORY : Dementia. Hypercholesterolemia. Hypertension. Head trauma TBIx3. GERD. SURGICAL HISTORY : Appendectomy.Cholecystectomy. Tubal ligation.RT hip replacement. Bladder slin g. ENCOUNTER: Initial ACUITY: 2 weeks PAIN SCORE: 0/10 LOCATION: Bilateral leg. TECHNIQUE: Venous ultrasound of the left and right leg was performed from the inguinal ligament t o the proximal calf. Real-time, color Doppler and spectral tracing, compression and augmentation john hniques were used. FINDINGS: RIGHT LEG: There is normal compressibility of the deep venous system from the inguinal region to the proximal calf. No echogenic clot is seen in the lumen of the common femoral, femoral, popliteal, and posterior tibial veins. There is a normal response of the venous system to proximal and distal augmentation and respiration. LEFT LEG: There is normal compressibility of the deep venous system from the inguinal region to t he proximal calf. No echogenic clot is seen in the lumen of the common femoral, femoral, popliteal, and posterior tibial veins. There is a normal response of the venous system to proximal and distal a ugmentation and respiration. CONCLUSION: No evidence of DVT. Rivas Brizuela MD on July 11, 2017 at 15:35 Board Certified Radiologist. This report was verified electronically.
--- NOTE | 2017-07-11 15:53 | HHI.FPPN ---
Subjective Remarks Patient was seen and evaluated this morning. She reports some back and lower abdominal pain. The pain had been well controlled on IV Tylenol overnight. She denies chest pain, shortness of breath, nausea, vomiting, diarrhea and constipation. She is oriented to person but not place; time was not assessed. Per son, his mother is hungry because she has been NPO since yesterday morning. He is also upset about his mother being scheduled for surgery without an evaluation and management discussion by neurosurgery. He further complains about her recent psych evaluation; "my mother understands everything and what was said, very much upset her." All questions were answered. (Ruchi Gold MD R1) Objective Vitals Vital Signs Date Time Temp Pulse Resp B/P (MAP) Pulse Ox O2 Delivery O2 Flow Rate FiO2 07/11/17 11:55 98.7 85 19 170/70 (103) 95 07/11/17 08:14 98.3 79 17 148/70 (96) 94 07/11/17 05:38 98.4 77 18 130/65 (86) 94 07/10/17 23:13 98.2 91 17 151/69 (96) 95 07/10/17 17:40 98.4 89 17 193/90 (124) 95 07/10/17 16:11 I/O 07/10/17 07/10/17 07/10/17 07/11/17 07/11/17 07/11/17 07:00 15:00 23:00 07:00 15:00 23:00 Intake Total 0 ml Output Total 1350 ml 1425 ml Balance -1350 ml -1425 ml Intake Oral 0 ml Output Urine Total 1350 ml 1425 ml # Bowel Movements 1 0 (Ruchi Gold MD R1) Result Diagram: 07/11/17 0608 07/11/17 0608 Imaging Last 72 hours Impressions Renal Ultrasound 07/11/17 0000 Signed Impressions: Service Date/Time: Tuesday, July 11, 2017 09:41 - CONCLUSION: No acute disease. Rivas Brizuela MD Thoracic Spine MRI 07/10/17 0000 Signed Impressions: Service Date/Time: Monday, July 10, 2017 11:02 - CONCLUSION: Mild degenerative change of the thoracic spine, as above. No acute thoracic spine abnormality is identified. Spinal cord demonstrates no abnormality. Tin Chester MD Pelvis CT 07/10/17 0000 Signed Impressions: Service Date/Time: Monday, July 10, 2017 09:08 - CONCLUSION: 1. Right hip prosthesis. No fracture or hardware loosening. 2. Distended urinary bladder. 3. Degenerative changes of the lumbar spine and left hip. Christian Richardson MD Lumbar Spine MRI 07/10/17 0000 Signed Impressions: Service Date/Time: Monday, July 10, 2017 11:02 - CONCLUSION: 1. Axial images are extremely limited due to motion artifact. 2. Mild central spinal stenosis at T12-L1, moderate central spinal stenosis at L2-3 and severe spinal stenosis at L3-4 and L4-5. There is almost certain central nerve root compromise at both the L3-4 and L4-5 levels. 3. On the sagittal T1 sequences, there appears to be obliteration of the epidural fat around the left L5 nerve root which could compromise the left L5 dermatome. 4. MR findings concerning for bladder outlet obstruction with marked distention of the urinary bladder, bilateral hydroureter and bilateral hydronephrosis. James Cain MD Lumbar Spine CT 07/10/17 0000 Signed Impressions: Service Date/Time: Monday, July 10, 2017 09:08 - CONCLUSION: Radiographically significant spinal stenosis at L3-4 and L4-5. Extensive degenerative changes in the facets. Minimal anterior wedging of T12 without significant conus impingement. Shar Mark MD FACR Cervical Spine MRI 07/10/17 0000 Signed Impressions: Service Date/Time: Monday, July 10, 2017 11:02 - CONCLUSION: Significant motion. There appear to be significant spinal stenosis at the C5-C6 and C6-C7 levels. Shar Mark MD FACR Objective Remarks GENERAL: This is a well-nourished, well-developed patient, sitting up in bed, smiling. SKIN: Warm and dry. HEAD: Atraumatic. Normocephalic. EYES: Pupils equal round. Extraocular motions intact. No scleral icterus. No injection or drainage. ENT: Nose without bleeding, purulent drainage or septal hematoma. Airway patent. NECK: Trachea midline. CARDIOVASCULAR: Regular rate and rhythm without murmurs, gallops, or rubs. RESPIRATORY: Clear to auscultation anteriorly. Breath sounds equal bilaterally. No wheezes, rales, or rhonchi. GASTROINTESTINAL: Abdomen soft, nondistended but diffusely tender in lower quadrants. Scar noted midline extending vertically; firm tissue underlying scar. No hepato-splenomegaly, or palpable masses. No guarding. MUSCULOSKELETAL: Extremities without clubbing, cyanosis, or edema. Right knee with edema extending down the lower leg, lateral aspect. No calf tenderness. NEUROLOGICAL: Alert and oriented to person, not oriented to place. Cranial nerves II through XII intact. Speech clear. Medications and IVs Current Medications Medications (Trade) Dose Ordered Sig/Anita Route Start Time Stop Time Status Last Admin (NS Flush) 2 ml UNSCH PRN IV FLUSH 07/10/17 11:45 07/10/17 18:02 (NS Flush) 2 ml BID IV FLUSH 07/10/17 21:00 07/11/17 10:45 (Narcan Inj) 0.4 mg UNSCH PRN IV PUSH 07/10/17 11:45 (Nichelle-Colace) 1 tab BID PO 07/10/17 21:00 07/11/17 10:43 (Milk Of Magnesia Liq) 30 ml Q12H PRN PO 07/10/17 11:45 (Senokot) 17.2 mg Q12H PRN PO 07/10/17 11:45 (Dulcolax Supp) 10 mg DAILY PRN RECTAL 07/10/17 11:45 (Lactulose Liq) 30 ml DAILY PRN PO 07/10/17 11:45 (Ecotrin Ec) 81 mg DAILY PO 07/11/17 09:00 07/11/17 10:43 (Vitamin D3) 5,000 units DAILY PO 07/11/17 09:00 07/11/17 10:44 (SEROquel) 25 mg BID PO 07/10/17 21:00 07/11/17 10:44 (Vitamin C) 500 mg DAILY PO 07/11/17 09:00 07/11/17 10:43 (Prinivil) 40 mg DAILY PO 07/10/17 13:45 07/11/17 10:44 (Melatonin) 10 mg HS PRN PO 07/10/17 13:45 (Bactrim 400-80 Mg) 1 tab Q12H PO 07/11/17 06:00 07/11/17 05:57 (Catapres) 0.1 mg Q6H PRN PO 07/10/17 17:30 07/11/17 12:01 Sodium Chloride 1,000 ml @ 120 mls/hr Q8H20M IV 07/10/17 17:58 07/10/17 21:44 (Zofran Inj) 4 mg Q6H PRN IVP 07/10/17 18:15 (Ativan) 0.5 mg DAILY PRN PO 07/11/17 10:45 (Haldol Inj) 2 mg Q8H PRN IM 07/11/17 12:00 (Zoloft) 100 mg BID PO 07/11/17 12:15 07/11/17 12:34 (Ruchi Gold MD R1) Urinary Catheter: Yes Assessment to: Continue (Ruchi Gold MD R1) Vascular Central Line Catheter: No (Ruchi Gold MD R1) A/P Assessment and Plan Patient is an 81 year old female with a past medical history significant of advanced dementia and thought disorder with combative behavior who presents to the ED, accompanied by her and son, for evaluation of pain and incontinence. Admitted for work-up of spinal stenosis. Neurosurgery consulted. (Ruchi Gold MD R1) Attending Attestation Patient seen and examined, discussed with resident team. I agree with assessment and management as documented and discussed with me. This note/attestation is written in conjunction with resident H&P dated 2017. The patient has been seen and examined. The chart and all resident notes have been reviewed. I agree that inpatient care is appropriate and that a two midnight stay is expected for the reasons documented in the resident history and physical. I have discussed this with the resident and certify the resident s order for inpatient admission. Pt admitted yesterday due to suspected UTI. UCx growing gram negative rods. Son is concerned about urinary retention if catheter is removed, as patient had 2.7L out once holbrook catheter placed. Son demands ultrasound of bladder. Work up revealed worsening spinal stenosis, but family declines surgical intervention. She has also had behavioral concerns, and has been evaluated by psychiatry. Son raises concerns about swelling in right leg. Pt denies calf pain. Await urine culture. Anticipate discharge in 1-2 days. (Sharda Garrett MD) Problem List: (1) Spinal stenosis ICD Codes: M48.00 - Spinal stenosis, site unspecified Status: Chronic Plan: Patient with known history of spinal stenosis. Diagnosed in 2010. Initially, patient's back pain was managed with hydrocodone, then she received injections per pain management. The injections alleviated the patient's pain; her last injection was 5-6 years ago. Any residual pain is now controlled with a total of 800mg of ibuprofen daily. One week ago, patient started to complain of worsening back pain. She required a walker, which she previously did not need. Patient also started to experience incontinence, fecal and urinary. CT Lumbar Spine 07/10: * Radiographically significant spinal stenosis at L3-4 and L4-5. * Extensive degenerative changes in the facets. * Minimal anterior wedging of T12 without significant conus impingement. MRI Cervical Spine 07/10: * Significant motion. There appear to be significant spinal stenosis at the C5- C6 and C6-C7 levels. MRI Thoracic Spine 07/10: * Mild degenerative change of the thoracic spine, as above. No acute thoracic spine abnormality is identified. Spinal cord demonstrates no abnormality. MRI Lumbar Spine 07/10: * Axial images are extremely limited due to motion artifact. * Mild central spinal stenosis at T12-L1, moderate central spinal stenosis at L2 -3 and severe spinal stenosis at L3-4 and L4-5. There is almost certain central nerve root compromise at both the L3-4 and L4-5 levels. * On the sagittal T1 sequences, there appears to be obliteration of the epidural fat around the left L5 nerve root which could compromise the left L5 dermatome. * MR findings concerning for bladder outlet obstruction with marked distention of the urinary bladder, bilateral hydroureter and bilateral hydronephrosis. Neurosurgery consulted. Awaiting recommendations. Medications: * Acetaminophen 1000mg/100mL IV q6hr. * Patient's son requested no opioids and due to Cr of 2.00, Toradol was not selected. (2) Incontinence ICD Codes: R32 - Unspecified urinary incontinence Status: Acute Plan: * See Plan for Spinal stenosis. (3) Behavioral change ICD Codes: R46.89 - Other symptoms and signs involving appearance and behavior Status: Acute Plan: Patient with advanced dementia and a unspecified thought disorder per chart. Patient has also suffered three traumatic brain injuries - see past medical history. Patient's mental wellbeing started to decline approximately two weeks ago when she traveled to [place] with her son to visit family. The patient returned home within 24hr of arrival in "need for her home routine." The son eludes to behavioral issues but does not elaborate. Psychiatry consulted: * Frequent reorientation and sensory stimulation, familiar faces around, appropriate lights in the unit, also periodic ambulation are measures that help with delirium. * Continue Seroquel 25 mg twice daily for behavioral dysregulation and agitation. * Avoid deliriogenic medications as much as possible, benzodiazepines/ anticholinergics/narcotics. * Can use Haldol 2 mg IM/IV every 8 hours as needed severe agitation and combativeness, make sure that QTC is not longer than 460, QTC is now 378. * Consider to consult neuropsychologist, Dr. Reyna to help with neuropsychological testing for classification of dementia and further care. Imaging: * CT head pending. Labs/Studies: * Ammonia less than 10. * TSH 1.180. * Troponin neg. * EKG 07/10: Sinus rhythm. (4) UTI (urinary tract infection) ICD Codes: N39.0 - Urinary tract infection, site not specified Status: Acute Plan: UA 07/10: yellow, hazy, pH 5.5, moderate occult blood, positive nitrite, large leukocyte esterase, 8 RBC, 125 WBC, many bacteria. MRI Lumbar Spine 07/10: * MR findings concerning for bladder outlet obstruction with marked distention of the urinary bladder, bilateral hydroureter and bilateral hydronephrosis. Renal US: No acute disease. Medications: * Ceftriaxone 1g Once in ED. * Bactrim 1 single-strength tab q12hr - renally dosed. Orders: * Holbrook insertion to reduce bladder distention. (5) JODY (acute kidney injury) ICD Codes: N17.9 - Acute kidney failure, unspecified Status: Acute Plan: Cr 07/11: 1.85. No baseline Cr available. BUN 07/11: 28. No baseline BUN available. Medications: * NS 120ml/hr. (6) Hypertension ICD Codes: I10 - Essential (primary) hypertension Status: Chronic Plan: Patient with history of hypertension. * Continue home meds. * Clonidine 0.1mg q6hr PO PRN for SBP >= 170 and DBP >=100. (7) Hyperlipidemia ICD Codes: E78.5 - Hyperlipidemia, unspecified Status: Chronic Plan: Patient with history of hyperlipidemia. * Continue home meds. (8) Fluid, Electrolyte, Nutrition, and Prophylaxis Status: Acute Plan: Fluid: * NS 120 ml/hr while NPO. Electrolyte: * Monitor and replete as necessary. Nutrition: * Regular diet. Prophylaxis: * SCDs. * Heparin 5,00units q8hr. (Ruchi Gold MD R1) Problem Qualifiers (1) UTI (urinary tract infection): Qualified Codes: N39.0 - Urinary tract infection, site not specified Ruchi Gold MD R1 Jul 11, 2017 15:53 Sharda Garrett MD Jul 11, 2017 21:49
[2017-07-11] MEDS ORDERED: NYSTATIN 100,000 U/GM PWD 15 GM BTL TOPICAL PRN (16:00)
[2017-07-11] MEDS ORDERED: NYSTATIN 100,000 U/GM OINT 15 GM TUBE TOPICAL PRN (16:00)
[2017-07-11] MEDS ORDERED: ACETAMINOPHEN 325 MG TAB PO PRN (17:45)
[2017-07-11] MEDS: HEPARIN SODIUM - SQ 10,000 UNITS/ML VIAL SQ SCH (21:10)
[2017-07-12] VITALS (8 sets, daily range): BP systolic 132–189; BP diastolic 65–94; PULSE 69–86; RESP 17–18; TEMP 97.8–98.7; O2SAT 92–95
[2017-07-12] MEDS: SODIUM CHLOR 0.9% 1000 ML INJ 1,000 ML IV SCH ×2 (03:18→11:38)
[2017-07-12] MEDS ORDERED: HALOPERIDOL LACTATE 5 MG/ML AMP IM ONE (03:30)
[2017-07-12] MEDS: SULFAMETHOXAZOLE-TRIMETHOPRIM 400-80 MG TAB PO SCH ×2 (07:47→18:33)
[2017-07-12] MEDS: HEPARIN SODIUM - SQ 10,000 UNITS/ML VIAL SQ SCH ×3 (07:48→22:00)
[2017-07-12] MEDS: CHOLECALCIFEROL (VIT D3) 1000 UNIT TAB PO SCH (09:39)
[2017-07-12] MEDS: QUEtiapine FUMARATE 25 MG TAB PO SCH ×2 (09:40→22:26)
[2017-07-12] MEDS: ASCORBIC ACID 500 MG TAB PO SCH (09:40)
[2017-07-12] MEDS: DOCUSATE SODIUM 50 MG/SENNA 8.6 MG TAB PO SCH ×2 (09:40→22:25)
[2017-07-12] MEDS: LISINOPRIL 20 MG TAB PO SCH (09:40)
[2017-07-12] MEDS: SERTRALINE HCL 100 MG TAB PO SCH ×2 (09:40→22:25)
[2017-07-12] MEDS: SODIUM CHLORIDE 0.9% FLUSH 10 ML FLUSH IV FLUSH SCH ×2 (09:42→21:00)
[2017-07-12 09:43] LABS: HEMATOCRIT 32.7 % (35.0-46.0); MEAN CORPUSCULAR HEMOGLOBIN 29.7 PG (27.0-34.0); MEAN CORPUSCULAR HGB CONC 33.8 % (32.0-36.0); MEAN PLATELET VOLUME 7.8 FL (7.0-11.0); PLATELET COUNT 147 TH/MM3 (150-450); RED BLOOD COUNT 3.71 MIL/MM3 (4.00-5.30); RED CELL DISTRIBUTION WIDTH 13.2 % (11.6-17.2); WHITE BLOOD COUNT 5.9 TH/MM3 (4.0-11.0)
[2017-07-12] MEDS: ASPIRIN EC 81 MG TABEC PO SCH (09:43)
[2017-07-12 10:14] LABS: CREATININE 0.98 MG/DL (0.50-1.00)
--- NOTE | 2017-07-12 12:15 | HHI.NSPN ---
(Jorge Alberto Schneider) History Chief Complaint: Unable to obtain due to patient's mental status. (Jorge Alberto Schneider) Interval History 07/10: The patient is admitted to [facility] for evaluation of pain and incontinence. The patient has a history of spinal stenosis diagnosed in 2010. Her pain was initially managed with hydrocodone and then with injections from Pain Management with her last injection five or six years ago. Her pain is now being controlled with a total of 800 mg of ibuprofen daily. A week ago the patient started complaining of worsening back pain and having incontinence. Since then she has had to use a walker for ambulation. Her son denied any fall or other trauma. Neurosurgery was consulted for the finding of significant spinal stenosis at the L3-4 and L4-[address] She was evaluated that evening. It was not felt that the patient had cauda equina syndrome. A repeat MRI cervical spine was recommended due to motion artifact on the one completed this date. The history is obtained from the EMR. 07/12: The patient is awake and alert in four-point soft restraints. She is confused and answers all questions with rambling, inappropriate responses. She denies any pain to the neck, back or extremities. She did answer affirmatively to numbness but when asked where her response was inappropriate and rambling. She is moving all extremities spontaneously and purposefully without any evident sensorimotor deficits. (Jorge Alberto Schneider) System Review Comments Unable to obtain due to patient's mental status. (Jorge Alberto Schneider) Exam Results 07/10/17 07/10/17 07/11/17 07/11/17 07/12/17 07/12/17 06:00 18:00 06:00 18:00 06:00 18:00 Intake Total 0 ml 3253 ml Output Total 2775 ml 1100 ml Balance -2775 ml 2153 ml Intake Oral 0 ml 3253 ml Output Urine Total 2775 ml 1100 ml # Bowel Movements 1 0 0 Vital Signs Date Time Temp Pulse Resp B/P (MAP) Pulse Ox O2 Delivery O2 Flow Rate FiO2 07/12/17 07:51 97.8 77 18 154/65 (94) 93 07/12/17 04:00 98.6 82 18 148/69 (95) 93 07/12/17 00:00 98.3 81 18 144/66 (92) 94 07/11/17 20:00 98.4 77 16 150/70 (96) 94 07/11/17 18:04 94 21 07/11/17 16:10 98.0 79 18 149/64 (92) 94 07/11/17 15:43 81 07/11/17 11:55 98.7 85 19 170/70 (103) 95 07/11/17 08:14 98.3 79 17 148/70 (96) 94 07/11/17 05:38 98.4 77 18 130/65 (86) 94 07/10/17 23:13 98.2 91 17 151/69 (96) 95 07/10/17 17:40 98.4 89 17 193/90 (124) 95 07/10/17 16:11 07/10/17 14:00 84 18 155/76 (102) 96 Room Air 07/10/17 12:10 95 21 07/10/17 12:00 88 16 148/80 (102) 96 Room Air 07/10/17 10:00 78 18 179/81 (113) 95 Room Air 07/10/17 08:14 89 17 162/85 (110) 96 Room Air 07/10/17 07:58 98.5 88 18 182/86 (118) 95 (Jorge Alberto Schneider) Physical Examination GENERAL: The patient is awake & alert in bed with the knees up and in 4-point soft restraints. She readily interacts. She is not in any apparent distress. HEENT: Normocephalic, atraumatic. PERRLA 3 mm brisk, EOMI. MMM & pink, tongue midline to protrusion. NECK: Midline cervical spine NTTP. Neck supple. No JVD. Trachea midline. MUSCULOSKELETAL: K[place]OR spontaeneously & purposefully w/o difficulty. No evident clubbing or deformity. NEUROLOGICAL: Awake & alert, oriented to self only. Speech clear but inappropriate to questions asked. Follows simple commands. No evident sensorimotor deficits w/strength normal. (Jorge Alberto Schneider) Lab, Micro, Other Results Recent Impressions Renal Ultrasound 4/17/18 0000 Signed Impressions: Service Date/Time: Tuesday, July 11, 2017 09:41 - CONCLUSION: No acute disease. Rivas Brizuela MD Lower Extremity Ultrasound 07/11/17 0000 Signed Impressions: Service Date/Time: Tuesday, July 11, 2017 09:56 - CONCLUSION: No evidence of DVT. Rivas Brizuela MD Thoracic Spine MRI 07/10/17 0000 Signed Impressions: Service Date/Time: Monday, July 10, 2017 11:02 - CONCLUSION: Mild degenerative change of the thoracic spine, as above. No acute thoracic spine abnormality is identified. Spinal cord demonstrates no abnormality. Tin Chester MD Pelvis CT 07/10/17 0000 Signed Impressions: Service Date/Time: Monday, July 10, 2017 09:08 - CONCLUSION: 1. Right hip prosthesis. No fracture or hardware loosening. 2. Distended urinary bladder. 3. Degenerative changes of the lumbar spine and left hip. Christian Richardson MD Lumbar Spine MRI 07/10/17 0000 Signed Impressions: Service Date/Time: Monday, July 10, 2017 11:02 - CONCLUSION: 1. Axial images are extremely limited due to motion artifact. 2. Mild central spinal stenosis at T12-L1, moderate central spinal stenosis at L2-3 and severe spinal stenosis at L3-4 and L4-5. There is almost certain central nerve root compromise at both the L3-4 and L4-5 levels. 3. On the sagittal T1 sequences, there appears to be obliteration of the epidural fat around the left L5 nerve root which could compromise the left L5 dermatome. 4. MR findings concerning for bladder outlet obstruction with marked distention of the urinary bladder, bilateral hydroureter and bilateral hydronephrosis. James Cain MD Lumbar Spine CT 07/10/17 0000 Signed Impressions: Service Date/Time: Monday, July 10, 2017 09:08 - CONCLUSION: Radiographically significant spinal stenosis at L3-4 and L4-5. Extensive degenerative changes in the facets. Minimal anterior wedging of T12 without significant conus impingement. Shar Mark MD FACR Cervical Spine MRI 07/10/17 0000 Signed Impressions: Service Date/Time: Monday, July 10, 2017 11:02 - CONCLUSION: Significant motion. There appear to be significant spinal stenosis at the C5-C6 and C6-C7 levels. Shar Mark MD FACR Laboratory Tests Test 07/10/17 09:31 07/10/17 10:14 07/10/17 12:30 07/11/17 06:08 Urine Color YELLOW Urine Turbidity HAZY Urine pH 5.5 Urine Specific [place] 1.016 Urine Protein TRACE mg/dL Urine Glucose (UA) NEG mg/dL Urine Ketones NEG mg/dL Urine Occult Blood MOD Urine Nitrite POS Urine Bilirubin NEG Urine Urobilinogen LESS THAN 2.0 MG/DL Urine Leukocyte Esterase LARGE Urine RBC 8 /hpf Urine WBC 125 /hpf Urine WBC Clumps MANY Urine Squamous Epithelial Cells 2 /hpf Urine Bacteria MANY /hpf Urine Hyaline Casts 10 /lpf Microscopic Urinalysis Comment CULTURE INDICATED White Blood Count 8.7 TH/MM3 9.9 TH/MM3 Red Blood Count 4.52 MIL/MM3 3.90 MIL/MM3 Hemoglobin 13.4 GM/DL 11.7 GM/DL Hematocrit 39.4 % 33.9 % Mean Corpuscular Volume 87.1 FL 86.8 FL Mean Corpuscular Hemoglobin 29.6 PG 30.0 PG Mean Corpuscular Hemoglobin Concent 34.0 % 34.6 % Red Cell Distribution Width 13.4 % 13.5 % Platelet Count 162 TH/MM3 139 TH/MM3 Mean Platelet Volume 7.5 FL 8.0 FL Neutrophils (%) (Auto) 87.7 % 87.2 % Lymphocytes (%) (Auto) 4.8 % 6.5 % Monocytes (%) (Auto) 6.7 % 5.2 % Eosinophils (%) (Auto) 0.4 % 0.9 % Basophils (%) (Auto) 0.4 % 0.2 % Neutrophils # (Auto) 7.7 TH/MM3 8.7 TH/MM3 Lymphocytes # (Auto) 0.4 TH/MM3 0.6 TH/MM3 Monocytes # (Auto) 0.6 TH/MM3 0.5 TH/MM3 Eosinophils # (Auto) 0.0 TH/MM3 0.1 TH/MM3 Basophils # (Auto) 0.0 TH/MM3 0.0 TH/MM3 CBC Comment DIFF FINAL DIFF FINAL Differential Comment Blood Urea Nitrogen 25 MG/DL 28 MG/DL Creatinine 2.00 MG/DL 1.85 MG/DL Random Glucose 120 MG/DL 103 MG/DL Calcium Level 9.5 MG/DL 8.9 MG/DL Sodium Level 138 MEQ/L 144 MEQ/L Potassium Level 4.3 MEQ/L 3.9 MEQ/L Chloride Level 105 MEQ/L 111 MEQ/L Carbon Dioxide Level 25.4 MEQ/L 24.7 MEQ/L Anion Gap 8 MEQ/L 8 MEQ/L Estimat Glomerular Filtration Rate 24 ML/MIN 26 ML/MIN Ammonia LESS THAN 10 MCMOL/L Total Creatine Kinase 46 U/L Troponin I LESS THAN 0.02 NG/ML Thyroid Stimulating Hormone 3rd Gen 1.180 uIU/ML Total Protein 6.2 GM/DL Albumin 3.0 GM/DL Alkaline Phosphatase 65 U/L Aspartate Amino Transf (AST/SGOT) 17 U/L Alanine Aminotransferase (ALT/SGPT) 16 U/L Total Bilirubin 0.6 MG/DL Test 07/12/17 08:37 White Blood Count 5.9 TH/MM3 Red Blood Count 3.71 MIL/MM3 Hemoglobin 11.0 GM/DL Hematocrit 32.7 % Mean Corpuscular Volume 88.0 FL Mean Corpuscular Hemoglobin 29.7 PG Mean Corpuscular Hemoglobin Concent 33.8 % Red Cell Distribution Width 13.2 % Platelet Count 147 TH/MM3 Mean Platelet Volume 7.8 FL Blood Urea Nitrogen 19 MG/DL Creatinine 0.98 MG/DL Random Glucose 84 MG/DL Calcium Level 9.0 MG/DL Sodium Level 143 MEQ/L Potassium Level 3.5 MEQ/L Chloride Level 110 MEQ/L Carbon Dioxide Level 24.0 MEQ/L Anion Gap 9 MEQ/L Estimat Glomerular Filtration Rate 54 ML/MIN (Jorge Alberto Schneider) Medical Decision Making Impression and Plan Impression: Severe lumbar stenosis. No definite cauda equina syndrome Cervical myelopathy chronic versus subacute Cervical stenosis on MRI but significant artifact The patient is awake & alert but confused. She is moving all extremities spontaneously & purposefully w/o any evident sensorimotor deficits w/normal strength. Reviewed labs for today. Drop in haemoglobin level. Improvement in thrombocytopenia. Improvement in renal insufficiency. Plan: Primary management per Hospitalist. Recommend repeat MRI cervical spine w/o contrast with sedation so as to obtain clearer images to confirm severity of stenosis. Dr Medina to discuss treatment options w/patient and family once MRI is obtained. (Jorge Alberto Schneider) Attending Statement The exam, history, and the medical decision-making described in the above note were completed with the assistance of the mid-level provider. I reviewed and agree with the findings presented. I attest that I had a [id number] encounter with the patient on the same day, and personally performed and documented my assessment and findings in the medical record. The patient is much more alert in the past couple of days. She was examined by the undersigned last evening and again on the morning of 07/12/2017. She did not sleep well last night. However in general she has been much more alert with some improvement in her speech in the past couple of days. On examination yesterday and today, she has essentially normal motor strength throughout the upper and lower extremities. Mild left Shell's response. No ankle clonus Plantar responses are neutral. No definite evidence of cauda equina syndrome. Discussed again with the patient's son. He would like to continue conservative treatment. Polanco to be discontinued today with follow-up bladder scan. No surgical intervention planned at this time. She may be discharged from a neurosurgical standpoint. (Grabiel Medina MD) Jorge Alberto Schneider Jul 12, 2017 12:15 Grabiel Medina MD Jul 12, 2017 21:35
--- NOTE | 2017-07-12 12:22 | HHI.FPPN ---
Subjective Remarks Patient was seen and evaluated this morning. Neither son nor are not at bedside. She reports minimal abdominal pain and denies back and leg pain. She is obviously confused and does not answer questions appropriately. (Ruchi Gold MD R1) Objective Vitals Vital Signs Date Time Temp Pulse Resp B/P (MAP) Pulse Ox O2 Delivery O2 Flow Rate FiO2 07/12/17 07:51 97.8 77 18 154/65 (94) 93 07/12/17 04:00 98.6 82 18 148/69 (95) 93 07/12/17 00:00 98.3 81 18 144/66 (92) 94 07/11/17 20:00 98.4 77 16 150/70 (96) 94 07/11/17 18:04 94 21 07/11/17 16:10 98.0 79 18 149/64 (92) 94 07/11/17 15:43 81 I/O 07/11/17 07/11/17 07/11/17 07/12/17 07/12/17 07/12/17 07:00 15:00 23:00 07:00 15:00 23:00 Intake Total 0 ml 850 ml 2403 ml Output Total 1425 ml 625 ml 475 ml Balance -1425 ml 225 ml 1928 ml Intake Oral 0 ml 850 ml 2403 ml Output Urine Total 1425 ml 625 ml 475 ml # Bowel Movements 0 0 0 (Ruchi Gold MD R1) Result Diagram: 07/12/17 0837 07/12/17 0837 Imaging Last 72 hours Impressions Renal Ultrasound 07/11/17 0000 Signed Impressions: Service Date/Time: Tuesday, July 11, 2017 09:41 - CONCLUSION: No acute disease. Rivas Brizuela MD Lower Extremity Ultrasound 07/11/17 0000 Signed Impressions: Service Date/Time: Tuesday, July 11, 2017 09:56 - CONCLUSION: No evidence of DVT. Rivas Brizuela MD Thoracic Spine MRI 07/10/17 0000 Signed Impressions: Service Date/Time: Monday, July 10, 2017 11:02 - CONCLUSION: Mild degenerative change of the thoracic spine, as above. No acute thoracic spine abnormality is identified. Spinal cord demonstrates no abnormality. Tin Chester MD Pelvis CT 07/10/17 0000 Signed Impressions: Service Date/Time: Monday, July 10, 2017 09:08 - CONCLUSION: 1. Right hip prosthesis. No fracture or hardware loosening. 2. Distended urinary bladder. 3. Degenerative changes of the lumbar spine and left hip. Christian Richardson MD Lumbar Spine MRI 07/10/17 0000 Signed Impressions: Service Date/Time: Monday, July 10, 2017 11:02 - CONCLUSION: 1. Axial images are extremely limited due to motion artifact. 2. Mild central spinal stenosis at T12-L1, moderate central spinal stenosis at L2-3 and severe spinal stenosis at L3-4 and L4-5. There is almost certain central nerve root compromise at both the L3-4 and L4-5 levels. 3. On the sagittal T1 sequences, there appears to be obliteration of the epidural fat around the left L5 nerve root which could compromise the left L5 dermatome. 4. MR findings concerning for bladder outlet obstruction with marked distention of the urinary bladder, bilateral hydroureter and bilateral hydronephrosis. James Cain MD Lumbar Spine CT 07/10/17 0000 Signed Impressions: Service Date/Time: Monday, July 10, 2017 09:08 - CONCLUSION: Radiographically significant spinal stenosis at L3-4 and L4-5. Extensive degenerative changes in the facets. Minimal anterior wedging of T12 without significant conus impingement. Shar Mark MD FACR Cervical Spine MRI 07/10/17 0000 Signed Impressions: Service Date/Time: Monday, July 10, 2017 11:02 - CONCLUSION: Significant motion. There appear to be significant spinal stenosis at the C5-C6 and C6-C7 levels. Shar Mark MD FACR Objective Remarks GENERAL: This is a well-nourished, well-developed patient, laying in bed, smiling. Soft restraints were placed overnight. SKIN: Warm and dry. HEAD: Atraumatic. Normocephalic. EYES: Pupils equal round. Extraocular motions intact. No scleral icterus. No injection or drainage. ENT: Nose without bleeding, purulent drainage or septal hematoma. Airway patent. NECK: Trachea midline. CARDIOVASCULAR: Regular rate and rhythm without murmurs, gallops, or rubs. RESPIRATORY: Clear to auscultation anteriorly. Breath sounds equal bilaterally. No wheezes, rales, or rhonchi. GASTROINTESTINAL: Abdomen soft, nondistended but mildly tender in lower quadrants. Scar noted midline extending vertically; firm tissue underlying scar. No hepato-splenomegaly, or palpable masses. No guarding. MUSCULOSKELETAL: Extremities without clubbing, cyanosis, or edema. Right knee with edema extending down the lower leg, lateral aspect. No calf tenderness. NEUROLOGICAL: Alert and oriented to person, not oriented to place. Cranial nerves II through XII intact. Speech clear. Medications and IVs Current Medications Medications (Trade) Dose Ordered Sig/Anita Route Start Time Stop Time Status Last Admin (NS Flush) 2 ml UNSCH PRN IV FLUSH 07/10/17 11:45 07/10/17 18:02 (NS Flush) 2 ml BID IV FLUSH 07/10/17 21:00 07/12/17 09:42 (Narcan Inj) 0.4 mg UNSCH PRN IV PUSH 07/10/17 11:45 (Nichelle-Colace) 1 tab BID PO 07/10/17 21:00 07/12/17 09:40 (Milk Of Magnesia Liq) 30 ml Q12H PRN PO 07/10/17 11:45 (Senokot) 17.2 mg Q12H PRN PO 07/10/17 11:45 (Dulcolax Supp) 10 mg DAILY PRN RECTAL 07/10/17 11:45 (Lactulose Liq) 30 ml DAILY PRN PO 07/10/17 11:45 (Ecotrin Ec) 81 mg DAILY PO 07/11/17 09:00 07/12/17 09:43 (Vitamin D3) 5,000 units DAILY PO 07/11/17 09:00 07/12/17 09:39 (SEROquel) 25 mg BID PO 07/10/17 21:00 07/12/17 09:40 (Vitamin C) 500 mg DAILY PO 07/11/17 09:00 07/12/17 09:40 (Prinivil) 40 mg DAILY PO 07/10/17 13:45 07/12/17 09:40 (Melatonin) 10 mg HS PRN PO 07/10/17 13:45 07/11/17 21:09 (Bactrim 400-80 Mg) 1 tab Q12H PO 07/11/17 06:00 07/12/17 07:47 (Catapres) 0.1 mg Q6H PRN PO 07/10/17:30 07/11/17 12:01 Sodium Chloride 1,000 ml @ 120 mls/hr Q8H20M IV 07/10/17 17:58 07/10/17 21:44 (Zofran Inj) 4 mg Q6H PRN IVP 07/10/17 18:15 (Ativan) 0.5 mg DAILY PRN PO 07/11/17 10:45 Future Hold (Haldol Inj) 2 mg Q8H PRN IM 07/11/17 12:00 07/11/17 21:30 (Zoloft) 100 mg BID PO 07/11/17 12:15 07/12/17 09:40 (Mycostatin Oint) 1 applic Q8HR PRN TOPICAL 07/11/17 16:00 (Mycostatin Powder) 1 applic Q8HR PRN TOPICAL 07/11/17 16:00 (Tylenol) 650 mg Q6H PRN PO 07/11/17 17:45 07/12/17 09:40 (Heparin Inj) 5,000 units Q8HR SQ 07/11/17 22:00 07/12/17 07:48 (Ruchi Gold MD R1) Urinary Catheter: Yes Assessment to: Remove (Ruchi Gold MD R1) Vascular Central Line Catheter: No (Ruchi Gold MD R1) A/P Assessment and Plan Patient is an 81 year old female with a past medical history significant of advanced dementia and thought disorder with combative behavior who presents to the ED, accompanied by her and son, for evaluation of pain and incontinence. Admitted for work-up of spinal stenosis and management of UTI. Neurosurgery consulted. (Ruchi Gold MD R1) Attending Attestation Patient seen, examined, and discussed with resident team. I agree with assessment and management as documented and discussed with me. Some confusion and agitation overnight; pt received 1 dose of PRN haldol. Althoguh confused during morning exam, she appears calm. (Sharda Garrett MD) Problem List: (1) Spinal stenosis ICD Codes: M48.00 - Spinal stenosis, site unspecified Status: Chronic Plan: Patient with known history of spinal stenosis. Diagnosed in 2010. Initially, patient's back pain was managed with hydrocodone, then she received injections per pain management. The injections alleviated the patient's pain; her last injection was 5-6 years ago. Any residual pain is now controlled with a total of 800mg of ibuprofen daily. One week ago, patient started to complain of worsening back pain. She required a walker, which she previously did not need. Patient also started to experience incontinence, fecal and urinary. CT Lumbar Spine 07/10: * Radiographically significant spinal stenosis at L3-4 and L4-5. * Extensive degenerative changes in the facets. * Minimal anterior wedging of T12 without significant conus impingement. MRI Cervical Spine 07/10: * Significant motion. There appear to be significant spinal stenosis at the C5- C6 and C6-C7 levels. MRI Thoracic Spine 07/10: * Mild degenerative change of the thoracic spine, as above. No acute thoracic spine abnormality is identified. Spinal cord demonstrates no abnormality. MRI Lumbar Spine 07/10: * Axial images are extremely limited due to motion artifact. * Mild central spinal stenosis at T12-L1, moderate central spinal stenosis at L2 -3 and severe spinal stenosis at L3-4 and L4-5. There is almost certain central nerve root compromise at both the L3-4 and L4-5 levels. * On the sagittal T1 sequences, there appears to be obliteration of the epidural fat around the left L5 nerve root which could compromise the left L5 dermatome. * MR findings concerning for bladder outlet obstruction with marked distention of the urinary bladder, bilateral hydroureter and bilateral hydronephrosis. Neurosurgery consulted. Awaiting recommendations. Medications: * Acetaminophen 1000mg/100mL IV q6hr. * Patient's son requested no opioids and due to Cr of 2.00, Toradol was not selected. (2) Incontinence ICD Codes: R32 - Unspecified urinary incontinence Status: Acute Plan: * See Plan for Spinal stenosis. (3) Behavioral change ICD Codes: R46.89 - Other symptoms and signs involving appearance and behavior Status: Acute Plan: Patient with advanced dementia and a unspecified thought disorder per chart. Patient has also suffered three traumatic brain injuries - see past medical history. Patient's mental wellbeing started to decline approximately two weeks ago when she traveled to [place] with her son to visit family. The patient returned home within 24hr of arrival in "need for her home routine." The son eludes to behavioral issues but does not elaborate. Psychiatry consulted: * Frequent reorientation and sensory stimulation, familiar faces around, appropriate lights in the unit, also periodic ambulation are measures that help with delirium. * Continue Seroquel 25 mg twice daily for behavioral dysregulation and agitation. * Avoid deliriogenic medications as much as possible, benzodiazepines/ anticholinergics/narcotics. * Can use Haldol 2 mg IM/IV every 8 hours as needed severe agitation and combativeness, make sure that QTC is not longer than 460, QTC is now 378. * Consider to consult neuropsychologist, Dr. Reyna to help with neuropsychological testing for classification of dementia and further care. Imaging: * CT head pending. Labs/Studies: * Ammonia less than 10. * TSH 1.180. * Troponin neg. * EKG 07/10: Sinus rhythm. (4) UTI (urinary tract infection) ICD Codes: N39.0 - Urinary tract infection, site not specified Status: Acute Plan: UA 07/10: yellow, hazy, pH 5.5, moderate occult blood, positive nitrite, large leukocyte esterase, 8 RBC, 125 WBC, many bacteria. MRI Lumbar Spine 07/10: * MR findings concerning for bladder outlet obstruction with marked distention of the urinary bladder, bilateral hydroureter and bilateral hydronephrosis. Renal US: No acute disease. Medications: * Ceftriaxone 1g Once in ED. * Bactrim 1 single-strength tab q12hr - renally dosed. Orders: * Polanco insertion to reduce bladder distention. * Polanco to be removed today. With first void, bladder scan for post-void residual. * Follow-up with urology as outpatient. (5) JODY (acute kidney injury) ICD Codes: N17.9 - Acute kidney failure, unspecified Status: Resolved Plan: Cr 07/12: 0.98. No baseline Cr available. BUN 07/12: 19. No baseline BUN available. (6) Hypertension ICD Codes: I10 - Essential (primary) hypertension Status: Chronic Plan: Patient with history of hypertension. * Continue home meds. * Clonidine 0.1mg q6hr PO PRN for SBP >= 170 and DBP >=100. (7) Hyperlipidemia ICD Codes: E78.5 - Hyperlipidemia, unspecified Status: Chronic Plan: Patient with history of hyperlipidemia. * Continue home meds. (8) Fluid, Electrolyte, Nutrition, and Prophylaxis Status: Acute Plan: Fluid: * Tolerating PO. Electrolyte: * Monitor and replete as necessary. Nutrition: * Regular diet. Prophylaxis: * SCDs - not in place. * Heparin 5,00units q8hr. (Ruchi Gold MD R1) Problem Qualifiers (1) UTI (urinary tract infection): Qualified Codes: N39.0 - Urinary tract infection, site not specified Ruchi Gold MD R1 Jul 12, 2017 12:22 Sharda Garrett MD Jul 12, 2017 21:13
--- NOTE | 2017-07-12 15:36 | HHI.FPPN ---
Addendum to progress note ADDENDUM Reason for addendum: Additonal documentation Additional information DCF contacted on 07/12. Spoke to [id number]. Accepted case. Patient is medically cleared for discharge but concern has been raised by several providers (physician and nursing staff) involved in patient's care that her son, who is her primary caregiver, may not be fit mentally to resume that role. Ruchi Gold MD R1 Jul 12, 2017 15:36
[2017-07-13] VITALS: BP 159/71; PULSE 76; RESP 18; TEMP 97.3; O2SAT 96
[2017-07-13] MEDS: SULFAMETHOXAZOLE-TRIMETHOPRIM 400-80 MG TAB PO SCH (06:37)
[2017-07-13] MEDS: HEPARIN SODIUM - SQ 10,000 UNITS/ML VIAL SQ SCH (06:38)
[2017-07-13 06:44] LABS: HEMATOCRIT 34.2 % (35.0-46.0); HEMOGLOBIN 11.6 GM/DL (11.6-15.3); MEAN CELL VOLUME 86.5 FL (80.0-100.0); MEAN CORPUSCULAR HEMOGLOBIN 29.3 PG (27.0-34.0); MEAN CORPUSCULAR HGB CONC 33.8 % (32.0-36.0); MEAN PLATELET VOLUME 7.7 FL (7.0-11.0); PLATELET COUNT 175 TH/MM3 (150-450); RED BLOOD COUNT 3.95 MIL/MM3 (4.00-5.30); RED CELL DISTRIBUTION WIDTH 12.9 % (11.6-17.2); WHITE BLOOD COUNT 4.8 TH/MM3 (4.0-11.0)
[2017-07-13 07:13] LABS: BICARBONATE 27.4 MEQ/L (21.0-32.0); CALCIUM 8.7 MG/DL (8.5-10.1); CREATININE 0.93 MG/DL (0.50-1.00)
[2017-07-13 08:00] VITALS: BP 153/83; PULSE 103; RESP 19; TEMP 97.8; O2SAT 96
[2017-07-13] MEDS: QUEtiapine FUMARATE 25 MG TAB PO SCH (10:22)
[2017-07-13] MEDS: LISINOPRIL 20 MG TAB PO SCH (10:22)
[2017-07-13] MEDS: DOCUSATE SODIUM 50 MG/SENNA 8.6 MG TAB PO SCH (10:22)
[2017-07-13] MEDS: CHOLECALCIFEROL (VIT D3) 1000 UNIT TAB PO SCH (10:23)
[2017-07-13] MEDS: ASCORBIC ACID 500 MG TAB PO SCH (10:23)
[2017-07-13] MEDS: SERTRALINE HCL 100 MG TAB PO SCH (10:31)
[2017-07-13] MEDS: ASPIRIN EC 81 MG TABEC PO SCH (10:32)
--- NOTE | 2017-07-13 10:54 | HHI.FPPN ---
Subjective Remarks Patient seen and examined bedside this morning. Patient continues to be be happy and demented. She denies any changes. She denies any pain. There are no acute events overnight per nursing and son. (Paola Bloom MD R2) Objective Vitals Vital Signs Date Time Temp Pulse Resp B/P (MAP) Pulse Ox O2 Delivery O2 Flow Rate FiO2 07/13/17 08:00 97.8 103 19 153/83 (106) 96 07/13/17 00:00 97.3 76 18 159/71 (100) 96 07/12/17 20:00 98.7 77 17 132/67 (88) 95 07/12/17 18:00 94 21 07/12/17 16:00 98.3 86 18 168/80 (109) 94 07/12/17 12:00 98.6 83 18 189/94 (125) 92 I/O 07/12/17 07/12/17 07/12/17 07/13/17 07/13/17 07/13/17 06:59 14:59 22:59 06:59 14:59 22:59 Intake Total 2403 ml 240 ml Output Total 475 ml 200 ml Balance 1928 ml -200 ml 240 ml Intake Oral 2403 ml 240 ml Output Urine Total 475 ml 200 ml Bladder Scan Volume Amount 15 ml # Voids 2 # Bowel Movements 0 0 (Paola Bloom MD R2) Result Diagram: 07/13/17 0607/13/17 06 Objective Remarks GENERAL: This is a well-nourished, well-developed patient, laying in bed, smiling. Soft restraints were placed overnight. SKIN: Warm and dry. HEAD: Atraumatic. Normocephalic. EYES: Pupils equal round. Extraocular motions intact. No scleral icterus. No injection or drainage. ENT: Nose without bleeding, purulent drainage or septal hematoma. Airway patent. NECK: Trachea midline. CARDIOVASCULAR: Regular rate and rhythm without murmurs, gallops, or rubs. RESPIRATORY: Clear to auscultation anteriorly. Breath sounds equal bilaterally. No wheezes, rales, or rhonchi. GASTROINTESTINAL: Abdomen soft, nondistended but mildly tender in lower quadrants. Scar noted midline extending vertically; firm tissue underlying scar. No hepato-splenomegaly, or palpable masses. No guarding. MUSCULOSKELETAL: Extremities without clubbing, cyanosis, or edema. Right knee with edema extending down the lower leg, lateral aspect. No calf tenderness. NEUROLOGICAL: Alert and oriented to person, not oriented to place. Cranial nerves II through XII intact. Speech clear. (Paola Bloom MD R2) A/P Assessment and Plan Patient is an 81 year old female with a past medical history significant of advanced dementia and thought disorder with combative behavior who presents to the ED, accompanied by her and son, for evaluation of pain and incontinence. Admitted for work-up of spinal stenosis and management of UTI. Neurosurgery consulted and will f/u as outpatient. UTI sx have resolved and pt will be discharged on PO Abx. Discharge Planning plan to d/c today , patient is cleared for discharge medically, need to know who is healthcare surrogate to decide PT at home vs rehab (Paola Bloom MD R2) Attending Attestation Patient seen and examined, discussed with resident team. I agree with assessment and management as documented with me. No new medical concerns. Plan to discharge today - DCF has been contacted; determine home health vs rehab. Son was encouraged to bring in POA, but he is hesitant to do so. (Sharda Garrett MD) Problem List: (1) UTI (urinary tract infection) ICD Codes: N39.0 - Urinary tract infection, site not specified Status: Acute Plan: UA 07/10: yellow, hazy, pH 5.5, moderate occult blood, positive nitrite, large leukocyte esterase, 8 RBC, 125 WBC, many bacteria. Urine culture: E. coli pansensitive, continue Bactrim UTI with JODY, urinary retention and catheter placement s/p catheter MRI Lumbar Spine 07/10: * MR findings concerning for bladder outlet obstruction with marked distention of the urinary bladder, bilateral hydroureter and bilateral hydronephrosis. Renal US: No acute disease. Medications: * Ceftriaxone 1g Once in ED. * Bactrim 1 single-strength tab q12hr - renally dosed (07/11 - 07/25 ) to complete 14-day course * Polanco is out and patient is urinating without difficulty 24 hours (2) JODY (acute kidney injury) ICD Codes: N17.9 - Acute kidney failure, unspecified Status: Resolved Plan: JODY resolved. Creat 1.85 on 07/11 (3) Hypertension ICD Codes: I10 - Essential (primary) hypertension Status: Chronic Plan: Patient with history of hypertension. * Continue home meds. * Clonidine 0.1mg q6hr PO PRN for SBP >= 170 and DBP >=100. (4) Hyperlipidemia ICD Codes: E78.5 - Hyperlipidemia, unspecified Status: Chronic Plan: Patient with history of hyperlipidemia. * Continue home meds. (5) Spinal stenosis ICD Codes: M48.00 - Spinal stenosis, site unspecified Status: Resolved Plan: Patient with known history of spinal stenosis. Diagnosed in 2010. Initially, patient's back pain was managed with hydrocodone, then she received injections per pain management. The injections alleviated the patient's pain; her last injection was 5-6 years ago. Any residual pain is now controlled with a total of 800mg of ibuprofen daily. One week ago, patient started to complain of worsening back pain. She required a walker, which she previously did not need. Patient also started to experience incontinence, fecal and urinary. CT Lumbar Spine 07/10: * Radiographically significant spinal stenosis at L3-4 and L4-5. * Extensive degenerative changes in the facets. * Minimal anterior wedging of T12 without significant conus impingement. MRI Cervical Spine 07/10: * Significant motion. There appear to be significant spinal stenosis at the C5- C6 and C6-C7 levels. MRI Thoracic Spine 07/10: * Mild degenerative change of the thoracic spine, as above. No acute thoracic spine abnormality is identified. Spinal cord demonstrates no abnormality. MRI Lumbar Spine 07/10: * Axial images are extremely limited due to motion artifact. * Mild central spinal stenosis at T12-L1, moderate central spinal stenosis at L2 -3 and severe spinal stenosis at L3-4 and L4-5. There is almost certain central nerve root compromise at both the L3-4 and L4-5 levels. * On the sagittal T1 sequences, there appears to be obliteration of the epidural fat around the left L5 nerve root which could compromise the left L5 dermatome. * MR findings concerning for bladder outlet obstruction with marked distention of the urinary bladder, bilateral hydroureter and bilateral hydronephrosis. Neurosurgery consulted. Awaiting recommendations. Medications: * Acetaminophen 1000mg/100mL IV q6hr. * Patient's son requested no opioids and due to Cr of 2.00, Toradol was not selected. (6) Behavioral change ICD Codes: R46.89 - Other symptoms and signs involving appearance and behavior Status: Resolved Plan: Patient with advanced dementia and a unspecified thought disorder per chart. Patient has also suffered three traumatic brain injuries - see past medical history. Patient's mental wellbeing started to decline approximately two weeks ago when she traveled to [place] with her son to visit family. The patient returned home within 24hr of arrival in "need for her home routine." The son eludes to behavioral issues but does not elaborate. Psychiatry consulted: * Frequent reorientation and sensory stimulation, familiar faces around, appropriate lights in the unit, also periodic ambulation are measures that help with delirium. * Continue Seroquel 25 mg twice daily for behavioral dysregulation and agitation. * Avoid deliriogenic medications as much as possible, benzodiazepines/ anticholinergics/narcotics. * Can use Haldol 2 mg IM/IV every 8 hours as needed severe agitation and combativeness, make sure that QTC is not longer than 460, QTC is now 378. * Consider to consult neuropsychologist, Dr. Reyna to help with neuropsychological testing for classification of dementia and further care. Imaging: * CT head pending. Labs/Studies: * Ammonia less than 10. * TSH 1.180. * Troponin neg. * EKG 07/10: Sinus rhythm. (7) Fluid, Electrolyte, Nutrition, and Prophylaxis Status: Acute Plan: Fluid: * Tolerating PO. Electrolyte: * Monitor and replete as necessary. Nutrition: * Regular diet. Prophylaxis: * SCDs - not in place. * Heparin 5,00units q8hr. (Paola Bloom MD R2) Problem Qualifiers (1) UTI (urinary tract infection): Qualified Codes: N39.0 - Urinary tract infection, site not specified Paola Bloom MD R2 Jul 13, 2017 10:53 Sharda Garrett MD Jul 13, 2017 21:17
[2017-07-13] MEDS ORDERED: SULF400T18 PO (11:16)
--- NOTE | 2017-07-13 11:17 | HHI.DCPOC ---
Discharge Care Plan Diagnosis: (1) UTI (urinary tract infection) (2) JODY (acute kidney injury) Goals to Promote Your Health * To prevent worsening of your condition and complications * To maintain your health at the optimal level Directions to Meet Your Goals Take your medications as prescribed Follow your dietary instruction Follow activity as directed Keep your appointments as scheduled Take your immunizations and boosters as scheduled If your symptoms worsen call your PCP, if no PCP go to Urgent Care Center or Emergency Room Smoking is Dangerous to Your Health. Avoid second hand smoke Call the 24-hour hour crisis hotline for domestic abuse at Paola Bloom MD R2 Jul 13, 2017 11:17
[2017-07-13 11:44] VITALS: BP 164/85; PULSE 85; RESP 19; TEMP 97.9; O2SAT 95
--- NOTE | 2017-07-13 11:44 | HHI.FF ---
Face to Face Verification Diagnosis: (1) Spinal stenosis (2) JODY (acute kidney injury) (3) UTI (urinary tract infection) Physical Therapy Order: Evaluate and Treat, Improve ambulation, Strength and gait training Occupational Therapy Order: Evaluate and Treat, Improve ADL, Gross motor coordination Speech Therapy Order: To Improve: Speech and communication skills, Cognitive skills Home Health Nursing Order: Medical education Nursing assessment with vital signs Home Health Aide Order: To Assist In: Bathing and personal care, surfboard designer and meal prep Software Implementation Specialist Order: To Evaluate: Living conditions/environment, Support services Order: To Provide: Community services I have seen patient Lizzeth Trejo on 07/13/17. My clinical findings support the need for the requested home health care services because: Deconditioned w/ increased weakness Med compliance is questionable Limited ability to care for self Need for psychosocial assistance Impaired cognition/judgement High risk of falls Infection w/ risk of complications I certify that my clinical findings support that this patient is homebound because: Impaired cognitive ability/safety Unsteady gait/balance Unsafe to leave home unassisted Need for psychosocial assistance Unable to use public transportation Paola Bloom MD R2 Jul 13, 2017 11:44
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
== END 2017-07-13 16:37 | disposition home health service (06) | DRG 552 ==
LOC: NEPE 07:52 → NEDA 10:54 → NEDH 14:36 → N06B 16:09 → N06A 07-12 11:21
PROVIDERS: ADMIT Family Medicine; ATTEND Family Medicine
PROC: 0T9B70Z Drainage of Bladder with Drainage Device, Via Natural or Artificial Opening (ICD-10-PCS; principal; 2017-07-10)
DX: M48.061 Spinal stenosis, lumbar region without neurogenic claudication (principal); N17.9 Acute kidney failure, unspecified; F01.51 Vascular dementia, unspecified severity, with behavioral disturbance; D69.6 Thrombocytopenia, unspecified; N39.0 Urinary tract infection, site not specified; M48.02 Spinal stenosis, cervical region; I10 Essential (primary) hypertension; E78.5 Hyperlipidemia, unspecified; Z87.820 Personal history of traumatic brain injury; Z96.641 Presence of right artificial hip joint; R32 Unspecified urinary incontinence; M48.05 Spinal stenosis, thoracolumbar region; R15.9 Full incontinence of feces; F41.9 Anxiety disorder, unspecified
CPT/HCPCS: 72131; 72141; 72146; 72148; 72192; 76775; 80048; 80053; 81001; 82140; 82550; 84443; 84484; 85025; 85027; 87040; 87077; 87086; 87186; 93005; 93970; J0131; J0696; J1630; J1644; J2250; J7030